=== PATIENT | male | born 1960 ===

== ENCOUNTER 2017-01-19 09:20 | Emergency (ER) | payer MEDICAID ==
[2017-01-19 09:35] VITALS: TEMP 97.9; BMI 35.7
[2017-01-19] MEDS ORDERED: Sodium Chloride 0.9% 1,000 ML IV STA (09:49)
--- NOTE | 2017-01-19 09:52 | ED PDOC ---
Hyperglycemia/Hypoglycemia Time Seen by Provider: 01/19/17 09:37 Chief Complaint (Nursing): High Blood Sugar Chief Complaint (Provider): elevated blood sugar History Per: Patient History/Exam Limitations: no limitations Onset/Duration Of Symptoms: Days Current Symptoms Are (Timing): Still Present Severity: Moderate Current Diabetic Medications: Oral Medication Associated Infectious Symptoms: denies: Dysuria, Urinary Urgency, Urinary Frequency, Nausea, Vomiting, Diarrhea : The patient does not have any of the infectious symptoms listed except for those marked. Additional History Per: Patient Additional Complaint(s): The pt is a 57yo male with PMHx of HTN, Diabetes, hypercholesterolemia, presents to the ED for evaluation of elevated blood sugar levels for the past week. Pt. reports the lowest level was 186 and the highest was 299. Pt states he was informed by PCP to visit the ED if his levels went past 200. Pt. denies any SOB, chest pain, dizziness, nausea, vomiting, dysuria, frequency, abdominal pain. Pt. reports he "feels fine" and denies any symptoms. Pt. currently taking Alogliptin for diabetes. PMD: Dr. Noel Rodrigues Past Medical History Reviewed: Historical Data, Nursing Documentation, Vital Signs Vital Signs: Last Vital Signs Temp 97.9 F 01/19/17 09:24 Pulse 90 01/19/17 09:24 Resp 18 01/19/17 09:24 BP 114/72 01/19/17 09:24 Pulse Ox 98 01/19/17 09:24 - Medical History PMH: Diabetes, HIV, HTN, Hypercholesterolemia Denies: Chronic Kidney Disease - Family History Family History: States: Unknown Family Hx - Social History Current smoker - smoking cessation education provided: No Alcohol: None Drugs: Denies - Immunization History Hx Tetanus Toxoid Vaccination: No Hx Influenza Vaccination: Yes Hx Pneumococcal Vaccination: No - Home Medications Home Medications: Ambulatory Orders Medication Instructions Recorded Alogliptin Benzoate [Alogliptin] 25 mg PO DAILY 12/27/16 Atorvastatin Calcium 10 mg PO DAILY 12/27/16 Carvedilol [Coreg] 25 mg PO DAILY 12/27/16 Chlorthalidone [Hygroton] 25 mg PO DAILY 12/27/16 Darunavir Ethanolate [Prezista] 600 mg PO BID 12/27/16 Dolutegravir Sodium [Tivicay] 50 mg PO DAILY 12/27/16 Famotidine 20 mg PO BID 12/27/16 Lamivudine [Epivir] 150 mg PO DAILY 12/27/16 Lisinopril [Zestril] 40 mg PO DAILY 12/27/16 Loratadine [Claritin] 10 mg PO DAILY 12/27/16 Lubiprostone [Amitiza] 24 mcg PO DAILY 12/27/16 NIFEdipine ER [Nifedipine ER] 60 mg PO DAILY 12/27/16 Ritonavir [Norvir] 200 mg PO DAILY 12/27/16 Sulfamethoxazole/Trimethoprim 1 tab PO DAILY 12/27/16 [Bactrim DS 800 mg-160 mg] Tamsulosin [Flomax] 0.4 mg PO DAILY 12/27/16 Vitamin E 1,000 unit PO DAILY 12/27/16 - Allergies Allergies/Adverse Reactions: Allergies Allergy/AdvReac Type Severity Reaction Status Date / Time No Known Allergies Allergy Verified 01/02/17 15:31 Review of Systems ROS Statement: Except As Marked, All Systems Reviewed And Found Negative Constitutional: Positive for: Other (elevated blood sugar levels) Cardiovascular: Negative for: Chest Pain Respiratory: Negative for: Shortness of Breath Gastrointestinal: Negative for: Nausea, Vomiting, Abdominal Pain Genitourinary Male: Negative for: Dysuria, Frequency Neurological: Negative for: Dizziness Physical Exam - Reviewed Nursing Documentation Reviewed: Yes Vital Signs Reviewed: Yes - Physical Exam Appears: Positive for: Well, Non-toxic, No Acute Distress Head Exam: Positive for: ATRAUMATIC, NORMAL INSPECTION, NORMOCEPHALIC Skin: Positive for: Normal Color Eye Exam: Positive for: Normal appearance ENT: Positive for: Normal ENT Inspection Neck: Positive for: Normal, Supple Cardiovascular/Chest: Positive for: Regular Rate, Rhythm Respiratory: Positive for: Normal Breath Sounds. Negative for: Respiratory Distress Gastrointestinal/Abdominal: Positive for: Normal Exam, Soft Back: Positive for: Normal Inspection Extremity: Positive for: Normal ROM. Negative for: Tenderness, Pedal Edema, Deformity, Swelling Neurologic/Psych: Positive for: Alert, Oriented - Laboratory Results Result Diagrams: 01/19/17 10:00 01/19/17 10:00 Interpretation Of Abn Labs: bun 29; glucose 258 - ECG ECG: Positive for: Interpreted By Me, Viewed By Me ECG Rhythm: Positive for: Normal QRS, Normal ST Segment, Sinus Rhythm O2 Sat by Pulse Oximetry: 98 (RA) Pulse Ox Interpretation: Normal - Progress ED Course And Treament: 1145: Stable. AAOx3. No symptoms. Dehydration, got fluids to correct. No pain. Blood sugar down. Medical Decision Making Medical Decision Making: Time: 944 Impression: Elevated blood sugar levels Plan: -- EKg -- CMP -- CBC -- Troponin -- IV fluids --Reassess Scribe Attestation: Documented by Elizabeth Guzman acting as a scribe for Jasen Brown MD. Provider Attestation: All medical record entries made by the Scribe were at my direction and personally dictated by me. I have reviewed the chart and agree that the record accurately reflects my personal performance of the history, physical exam, medical decision making, and the department course for this patient. I have also personally directed, reviewed, and agree with the discharge instructions and disposition. Disposition - Clinical Impression Clinical Impression: Hyperglycemia, Dehydration - Patient ED Disposition Is Patient to be Admitted: No Counseled Patient/Family Regarding: Studies Performed, Diagnosis, Need For Followup - Disposition Referrals: [facility] [Outside] - 01/21/17 Disposition: Routine/Home Disposition Time: 11:47 Condition: STABLE Additional Instructions: Return if not better in 3 days. Instructions: Diabetic Hyperglycemia (ED), Dehydration (ED) Forms: [employer] Visits Discharge (Panamanian)
[2017-01-19 10:14] LABS: BASO # 0.1 K/uL (0.0-0.2); BASO % 1.1 % (0.0-2.0); EOS # 0.3 K/uL (0.0-0.7); EOS % 4.6 % (0.0-4.0); HEMATOCRIT 35.5 % (35.0-51.0); LYMPH # 2.4 K/uL (1.0-4.3); LYMPH % 42.4 % (20.0-40.0); MEAN CELL VOLUME 96.4 fl (80.0-94.0); MEAN CORPUSCULAR HEMOGLOBIN 33.5 pg (27.0-31.0); MEAN CORPUSCULAR HGB CONC 34.8 g/dL (33.0-37.0); MEAN PLATELET VOLUME 7.1 fl (7.2-11.7); MONO # 0.5 K/uL (0.0-0.8); MONO % 9.3 % (0.0-10.0); NEUT # 2.4 K/uL (1.8-7.0); NEUT % 42.6 % (50.0-75.0); NRBC % 0.2 % (0.0-0.0); RED CELL DISTRIBUTION WIDTH 14.8 % (11.5-14.5); WHITE BLOOD COUNT 5.6 K/uL (4.8-10.8)
[2017-01-19 10:23] LABS: ALB/GLOB RATIO 1.1 (1.0-2.1); ALKALINE PHOSPHATASE 72 U/L (38-126); ALT/SGPT 42 U/L (21-72); AST/SGOT 31 U/L (17-59); BILIRUBIN,TOTAL 0.5 mg/dl (0.2-1.3); BLOOD UREA NITROGEN 29 mg/dl (9-20); CALCIUM 9.5 mg/dL (8.4-10.2); CARBON DIOXIDE 22 mmol/L (22-30); CHLORIDE 101 mmol/L (98-107); GFR AFRICAN-AMERICAN > 60; GLUCOSE,RANDOM 258 mg/dL (75-110); POTASSIUM 4.5 MMOL/L (3.6-5.0); SODIUM 136 mmol/l (132-148); TOTAL PROTEIN 8.7 G/DL (6.3-8.2)
[2017-01-19 11:56] VITALS: BP 132/65; PULSE 88; RESP 14; O2SAT 100
--- NOTE | 2017-01-20 06:17 | CARD ---
APPROVED REPORT EKG Measurement Heart [id number] <Conclusion> Normal sinus rhythm Nonspecific T wave abnormality Abnormal ECG
== END 2017-01-19 11:56 | disposition home or self-care (01) ==
LOC: H.ER 09:20
DX: E11.65 Type 2 diabetes mellitus with hyperglycemia (principal); E86.0 Dehydration; E78.00 Pure hypercholesterolemia, unspecified; I10 Essential (primary) hypertension

== ENCOUNTER 2017-01-27 11:28 | Emergency (ER) | payer MEDICAID ==
[2017-01-27 11:42] VITALS: BP 125/90; PULSE 98; RESP 19; TEMP 98.1; O2SAT 100
--- NOTE | 2017-01-27 11:44 | ED PDOC ---
Upper Extremity Pain/Injury Time Seen by Provider: 01/27/17 11:42 Chief Complaint (Nursing): Trauma Chief Complaint (Provider): hand injury History Per: Patient (57 y/o male h/o DM/HTN/HIV here with hand injury that occurred 1 hour prior to ED arrival. Patient struck left hand against back of door accidentally. Notes deformity and inability to flex and extend digit. Is right hand domninant.) Past Medical History Reviewed: Historical Data, Nursing Documentation, Vital Signs - Medical History PMH: Bronchitis, CAD, Diabetes, HIV, HTN, Hypercholesterolemia, Hyperlipidemia, TIA Denies: Chronic Kidney Disease - Surgical History Surgical History: CABG (x 1 stent), Coronary Stent - Family History Family History: States: Unknown Family Hx - Immunization History Hx Tetanus Toxoid Vaccination: No Hx Influenza Vaccination: Yes Hx Pneumococcal Vaccination: No - Home Medications Home Medications: Ambulatory Orders Medication Instructions Recorded Alogliptin Benzoate [Alogliptin] 25 mg PO DAILY 12/27/16 Atorvastatin Calcium 10 mg PO DAILY 12/27/16 Carvedilol [Coreg] 25 mg PO DAILY 12/27/16 Chlorthalidone [Hygroton] 25 mg PO DAILY 12/27/16 Darunavir Ethanolate [Prezista] 600 mg PO BID 12/27/16 Dolutegravir Sodium [Tivicay] 50 mg PO DAILY 12/27/16 Famotidine 20 mg PO BID 12/27/16 Lamivudine [Epivir] 150 mg PO DAILY 12/27/16 Lisinopril [Zestril] 40 mg PO DAILY 12/27/16 Loratadine [Claritin] 10 mg PO DAILY 12/27/16 Lubiprostone [Amitiza] 24 mcg PO DAILY 12/27/16 NIFEdipine ER [Nifedipine ER] 60 mg PO DAILY 12/27/16 Ritonavir [Norvir] 200 mg PO DAILY 12/27/16 Sulfamethoxazole/Trimethoprim 1 tab PO DAILY 12/27/16 [Bactrim DS 800 mg-160 mg] Tamsulosin [Flomax] 0.4 mg PO DAILY 12/27/16 Vitamin E 1,000 unit PO DAILY 12/27/16 Ibuprofen [Motrin] 600 mg PO Q8 PRN #15 tab 01/27/17 - Allergies Allergies/Adverse Reactions: Allergies Allergy/AdvReac Type Severity Reaction Status Date / Time No Known Allergies Allergy Verified 01/02/17 15:31 Review of Systems ROS Statement: Except As Marked, All Systems Reviewed And Found Negative Musculoskeletal: Positive for: Hand Pain Physical Exam - Reviewed Nursing Documentation Reviewed: Yes Vital Signs Reviewed: Yes - Physical Exam Appears: Positive for: Well, Non-toxic, No Acute Distress Head Exam: Positive for: ATRAUMATIC, NORMAL INSPECTION, NORMOCEPHALIC Skin: Positive for: Normal Color, Warm, DRY Eye Exam: Positive for: EOMI, Normal appearance, PERRL ENT: Positive for: Normal ENT Inspection Neck: Positive for: Normal, Painless ROM Cardiovascular/Chest: Positive for: Regular Rate, Rhythm Respiratory: Positive for: CNT, Normal Breath Sounds Gastrointestinal/Abdominal: Positive for: Normal Exam, Bowel Sounds, Soft Back: Positive for: Normal Inspection Extremity: Positive for: Normal ROM, Tenderness (fifth digit left hand with hyper flexion at DIP and extension and middle interphalangeal joing. Able to flex and PIP.) Neurologic/Psych: Positive for: Alert, Oriented - Progress ED Course And Treament: XRY OF HAND: ? FRACTURE PROXIMAL PHALANX. PLACED IN FINGER SPLINT. ADVICED TO F/U WITH HAND FOR OBVIOUS TENDON INJURY. Disposition - Clinical Impression Clinical Impression: Finger injury - Patient ED Disposition Is Patient to be Admitted: No - Disposition Referrals: Bernardo Alexandre MD [Medical Doctor] - Disposition Time: 12:40 Condition: FAIR Prescriptions: Ibuprofen [Motrin] 600 mg PO Q8 PRN #15 tab PRN Reason: Pain, Severe (8-10) Instructions: Finger Sprain (ED), Finger Fracture (ED) Print Language: VIET[place]ESE
--- NOTE | 2017-01-27 16:14 | RAD ---
PROCEDURE: Left Hand Radiographs. HISTORY: hand injury/deformity COMPARISON: None. FINDINGS: BONES: Normal. No fracture. JOINTS: Normal. No osteoarthritic changes. SOFT TISSUES: Normal. OTHER FINDINGS: None. IMPRESSION: Normal left hand radiographs.
== END 2017-01-27 12:56 | disposition home or self-care (01) ==
LOC: H.ER 11:28
DX: S60.947A Unspecified superficial injury of left little finger, initial encounter (principal); W22.8XXA Striking against or struck by other objects, initial encounter; Y92.89 Other specified places as the place of occurrence of the external cause; E11.9 Type 2 diabetes mellitus without complications; E78.00 Pure hypercholesterolemia, unspecified; I10 Essential (primary) hypertension; I25.10 Atherosclerotic heart disease of native coronary artery without angina pectoris; Z86.73 Personal history of transient ischemic attack (TIA), and cerebral infarction without residual deficits; Z95.1 Presence of aortocoronary bypass graft; Z95.5 Presence of coronary angioplasty implant and graft; B20 Human immunodeficiency virus [HIV] disease

== ENCOUNTER 2017-02-01 13:18 | Emergency (ER) | payer MEDICAID ==
[2017-02-01 13:58] VITALS: BP 134/92; PULSE 90; RESP 16; TEMP 98; O2SAT 99
--- NOTE | 2017-02-01 14:29 | ED PDOC ---
Hyperglycemia/Hypoglycemia Time Seen by Provider: 02/01/17 14:00 Chief Complaint (Nursing): High Blood Sugar Chief Complaint (Provider): High Blood Sugar History Per: Patient History/Exam Limitations: no limitations Onset/Duration Of Symptoms: Hrs Current Symptoms Are (Timing): Still Present : The patient does not have any of the infectious symptoms listed except for those marked. Additional Complaint(s): Palmer Benitez is a 57 year old male with a history of diabetes that presents to the ED with a chief complaint of elevated blood sugar. Patient states that when he checked his blood sugar this morning, it was 250. He then took his pill, and checked his blood sugar again around 11 AM, and it was at 270. He states that his blood sugar is usually between 150-160 during the morning. He denies any fever, SOB, urinary frequency, urgency, polydipsia, or numbness/tingling. Patient further states that last week he was diagnosed with a left pinky fracture, and was advised to follow up with an orthopedist. He was then told he needs a copy of his x-ray before going to the orthopedist's office. Of Note: Patient is not insulin dependent, only takes pills to control his DM. Past Medical History Reviewed: Historical Data, Nursing Documentation, Vital Signs Vital Signs: Last Vital Signs Temp 98.0 F 02/01/17 13:56 Pulse 90 02/01/17 13:56 Resp 16 02/01/17 13:56 BP 134/92 H 02/01/17 13:56 Pulse Ox 99 02/01/17 13:56 - Medical History PMH: Bronchitis, CAD, Diabetes, HIV, HTN, Hypercholesterolemia, Hyperlipidemia, TIA Denies: Chronic Kidney Disease - Surgical History Surgical History: CABG (x 1 stent), Coronary Stent - Family History Family History: States: Unknown Family Hx - Immunization History Hx Tetanus Toxoid Vaccination: No Hx Influenza Vaccination: Yes Hx Pneumococcal Vaccination: No - Home Medications Home Medications: Ambulatory Orders Medication Instructions Recorded Alogliptin Benzoate [Alogliptin] 25 mg PO DAILY 12/27/16 Atorvastatin Calcium 10 mg PO DAILY 12/27/16 Carvedilol [Coreg] 25 mg PO DAILY 12/27/16 Chlorthalidone [Hygroton] 25 mg PO DAILY 12/27/16 Darunavir Ethanolate [Prezista] 600 mg PO BID 12/27/16 Dolutegravir Sodium [Tivicay] 50 mg PO DAILY 12/27/16 Famotidine 20 mg PO BID 12/27/16 Lamivudine [Epivir] 150 mg PO DAILY 12/27/16 Lisinopril [Zestril] 40 mg PO DAILY 12/27/16 Loratadine [Claritin] 10 mg PO DAILY 12/27/16 Lubiprostone [Amitiza] 24 mcg PO DAILY 12/27/16 NIFEdipine ER [Nifedipine ER] 60 mg PO DAILY 12/27/16 Ritonavir [Norvir] 200 mg PO DAILY 12/27/16 Sulfamethoxazole/Trimethoprim 1 tab PO DAILY 12/27/16 [Bactrim DS 800 mg-160 mg] Tamsulosin [Flomax] 0.4 mg PO DAILY 12/27/16 Vitamin E 1,000 unit PO DAILY 12/27/16 Ibuprofen [Motrin] 600 mg PO Q8 PRN #15 tab 01/27/17 - Allergies Allergies/Adverse Reactions: Allergies Allergy/AdvReac Type Severity Reaction Status Date / Time No Known Allergies Allergy Verified 01/02/17 15:31 Review of Systems Constitutional: Positive for: Other (elevated blood sugar). Negative for: Fever ENT: Negative for: Other (denies polydipsia) Respiratory: Negative for: Shortness of Breath Genitourinary Male: Negative for: Frequency, Other (no urinary urgency) Musculoskeletal: Positive for: Hand Pain (left pinky fracture) Neurological: Negative for: Numbness (denies numbness or tingling) Physical Exam - Reviewed Nursing Documentation Reviewed: Yes Vital Signs Reviewed: Yes - Physical Exam Appears: Positive for: Non-toxic, No Acute Distress Head Exam: Positive for: ATRAUMATIC, NORMOCEPHALIC Skin: Positive for: Normal Color, Warm Eye Exam: Positive for: Normal appearance, EOMI, PERRL ENT: Positive for: Normal ENT Inspection Cardiovascular/Chest: Positive for: Regular Rate, Rhythm. Negative for: Murmur Respiratory: Positive for: Normal Breath Sounds. Negative for: Wheezing Gastrointestinal/Abdominal: Positive for: Soft. Negative for: Tenderness Neurologic/Psych: Positive for: Alert, Oriented - Laboratory Results Result Diagrams: 02/01/17 14:15 02/01/17 14:15 - ECG O2 Sat by Pulse Oximetry: 99 (RA) Pulse Ox Interpretation: Normal - Progress Re-evaluation Time: 16:43 (Repeat FSBS: 204. Pt. without any complaints. Instructed to go to medical records for copy of x-rays and to f/u with orthopedist as scheduled. ) Condition: Re-examined, Improved Medical Decision Making Medical Decision Making: Impression: Elevated Glucose Plan: * Finger Stick * Reevaluation 14:35 Finger Stick is 418. Labs, IV hydration, and insulin ordered. Scribe Attestation: Documented by Chrystal Saucedo, acting as a scribe for Buddy Evans PA-C. Provider Scribe Attestation: All medical record entries made by the Scribe were at my direction and personally dictated by me. I have reviewed the chart and agree that the record accurately reflects my personal performance of the history, physical exam, medical decision making, and the department course for this patient. I have also personally directed, reviewed, and agree with the discharge instructions and disposition. Disposition - Clinical Impression Clinical Impression: Hyperglycemia - Patient ED Disposition Is Patient to be Admitted: No - Disposition Referrals: Noel Rodrigues MD [Family Provider] - Disposition: Routine/Home Disposition Time: 16:44 Condition: STABLE Instructions: Diabetic Hyperglycemia (ED) Print Language: PASHTO
[2017-02-01] MEDS ORDERED: Insulin Regular 100 units/ml IVP STA (14:35)
[2017-02-01] MEDS ORDERED: Sodium Chloride 0.9% 1,000 ML IV STA ×2 (14:35→15:29)
[2017-02-01] MEDS ORDERED: Insulin Regular 100 units/ml ONE (14:52)
[2017-02-01 15:06] LABS: BASO # 0.1 K/uL (0.0-0.2); BASO % 1.4 % (0.0-2.0); EOS # 0.2 K/uL (0.0-0.7); EOS % 4.3 % (0.0-4.0); HEMATOCRIT 34.9 % (35.0-51.0); LYMPH # 1.9 K/uL (1.0-4.3); LYMPH % 40.8 % (20.0-40.0); MEAN CELL VOLUME 96.1 fl (80.0-94.0); MEAN CORPUSCULAR HEMOGLOBIN 32.6 pg (27.0-31.0); MEAN PLATELET VOLUME 7.6 fl (7.2-11.7); MONO # 0.5 K/uL (0.0-0.8); MONO % 9.9 % (0.0-10.0); NEUT % 43.6 % (50.0-75.0); NRBC % 0.2 % (0.0-0.0); RED CELL DISTRIBUTION WIDTH 14.4 % (11.5-14.5); WHITE BLOOD COUNT 4.6 K/uL (4.8-10.8)
[2017-02-01 15:10] LABS: RBC URINE 2 /hpf (0-3); URINE BILIRUBIN NEGATIVE (NEGATIVE); URINE BLOOD NEGATIVE (NEGATIVE); URINE COLOR YELLOW (YELLOW); URINE GLUCOSE (UA) >=500 mg/dL (Normal); URINE KETONE NEGATIVE (NEGATIVE); URINE LEUKOCYTE ESTERASE NEG Leu/uL (Negative); URINE PROTEIN NEGATIVE (NEGATIVE); URINE UROBILINOGEN 0.2-1.0 mg/dL (0.2-1.0); WBC URINE < 1 /hpf (0-5)
[2017-02-01 15:26] LABS: ALB/GLOB RATIO 1.3 (1.0-2.1); BILIRUBIN,TOTAL 0.4 mg/dl (0.2-1.3); CALCIUM 9.3 mg/dL (8.4-10.2); POTASSIUM 4.1 MMOL/L (3.6-5.0); TOTAL PROTEIN 8.3 G/DL (6.3-8.2)
[2017-02-01] MEDS ORDERED: Insulin Regular 100 units/ml SC STA (15:29)
== END 2017-02-01 16:49 | disposition home or self-care (01) ==
LOC: H.ER 13:18
DX: E11.65 Type 2 diabetes mellitus with hyperglycemia (principal); Z79.4 Long term (current) use of insulin

== ENCOUNTER 2017-03-18 13:04 | Inpatient (IN) | payer MEDICAID ==
[2017-03-18] MEDS ORDERED: Sodium Chloride 0.9% 1,000 ML IV STA ×2 (14:05→15:04)
[2017-03-18 14:35] LABS: BASO % 0.7 % (0.0-2.0); EOS # 0.1 K/uL (0.0-0.7); EOS % 2.1 % (0.0-4.0); HEMOGLOBIN 12.2 g/dL (12.0-18.0); LYMPH # 1.3 K/uL (1.0-4.3); LYMPH % 28.2 % (20.0-40.0); MEAN CELL VOLUME 95.3 fl (80.0-94.0); MEAN CORPUSCULAR HEMOGLOBIN 32.8 pg (27.0-31.0); MEAN CORPUSCULAR HGB CONC 34.4 g/dL (33.0-37.0); MEAN PLATELET VOLUME 8.6 fl (7.2-11.7); MONO # 0.4 K/uL (0.0-0.8); MONO % 7.8 % (0.0-10.0); NEUT # 2.9 K/uL (1.8-7.0); NEUT % 61.2 % (50.0-75.0); NRBC % 0.1 % (0.0-0.0); RBC 3.72 Mil/uL (4.40-5.90); WHITE BLOOD COUNT 4.7 K/uL (4.8-10.8)
[2017-03-18 14:43] LABS: CALCIUM 9.2 mg/dL (8.4-10.2)
[2017-03-18] MEDS ORDERED: Insulin Regular 100 units/ml IV STA (15:02)
[2017-03-18] MEDS ORDERED: Glucagon Recombinant 1 mg Inj IM PRN (15:04)
[2017-03-18] MEDS ORDERED: Dextrose 50% SYRINGE Inj (50 ml) IV PRN (15:04)
--- NOTE | 2017-03-18 15:42 | ED PDOC ---
HPI: Male Pain Time Seen by Provider: 03/18/17 13:33 Chief Complaint (Nursing): Male Genitourinary Chief Complaint (Provider): genital rash History Per: Patient History/Exam Limitations: no limitations Onset/Duration Of Symptoms: Days Current Symptoms Are (Timing): Still Present Associated Symptoms: denies: Urinary Symptoms Additional History Per: Patient Additional Complaint(s): The pt is a 57yo male, PMHx of HIV, DM, presents to the ED for evaluation of a genital rash present for the past couple days. Pt reports associated itching but denies dysuria. He also reports having high blood sugar levels but reports it as "nothing serious." Pt reports he has recently filled his medication but has been noncompliant. He denies any other medical complaints. Of note, pt's prior charts were consulted and last known absolute CD4 levels was 34 in August 2016. Pt states he follows up with Dr. Rodrigues and states he is "stable ". Past Medical History Reviewed: Historical Data, Nursing Documentation, Vital Signs Vital Signs: Last Vital Signs Temp 98 F 03/18/17 13:06 Pulse 81 03/18/17 13:06 Resp 20 03/18/17 13:06 BP 100/60 03/18/17 13:06 Pulse Ox 99 03/18/17 13:06 - Medical History PMH: Bronchitis, CAD, Diabetes, HIV, HTN, Hypercholesterolemia, Hyperlipidemia, TIA Denies: Chronic Kidney Disease - Surgical History Surgical History: CABG (x 1 stent), Coronary Stent - Family History Family History: States: Unknown Family Hx - Immunization History Hx Tetanus Toxoid Vaccination: No Hx Influenza Vaccination: Yes Hx Pneumococcal Vaccination: No - Home Medications Home Medications: Ambulatory Orders Medication Instructions Recorded Alogliptin Benzoate [Alogliptin] 25 mg PO DAILY 12/27/16 Atorvastatin Calcium 10 mg PO DAILY 12/27/16 Chlorthalidone [Hygroton] 25 mg PO DAILY 12/27/16 Darunavir Ethanolate [Prezista] 600 mg PO BID 12/27/16 Dolutegravir Sodium [Tivicay] 50 mg PO DAILY 12/27/16 Famotidine 20 mg PO BID 12/27/16 Lamivudine [Epivir] 150 mg PO DAILY 12/27/16 Lisinopril [Zestril] 40 mg PO DAILY 12/27/16 Loratadine [Claritin] 10 mg PO DAILY 12/27/16 NIFEdipine ER [Nifedipine ER] 60 mg PO DAILY 12/27/16 Ritonavir [Norvir] 100 mg PO BID 12/27/16 Sulfamethoxazole/Trimethoprim 1 tab PO DAILY 12/27/16 [Bactrim DS 800 mg-160 mg] Tamsulosin [Flomax] 0.4 mg PO DAILY 12/27/16 Vitamin E 1,000 unit PO DAILY 12/27/16 Aspirin [Ecotrin] 81 mg PO DAILY 03/18/17 Cholecalciferol [Vitamin D 1000 IU] 1,000 unit PO DAILY 03/18/17 Clopidogrel [Plavix] 75 mg PO DAILY 03/18/17 Ibuprofen [Motrin] 600 mg PO Q8 PRN 03/18/17 Oxybutynin XL [Ditropan XL] 5 mg PO HS 03/18/17 - Allergies Allergies/Adverse Reactions: Allergies Allergy/AdvReac Type Severity Reaction Status Date / Time No Known Allergies Allergy Verified 01/02/17 15:31 Review of Systems ROS Statement: Except As Marked, All Systems Reviewed And Found Negative Constitutional: Positive for: Other (high blood sugar) Genitourinary Male: Negative for: Dysuria Skin: Positive for: Rash (genital rash) Physical Exam - Reviewed Nursing Documentation Reviewed: Yes Vital Signs Reviewed: Yes - Physical Exam Appears: Positive for: Well, Non-toxic, No Acute Distress Head Exam: Positive for: ATRAUMATIC, NORMAL INSPECTION, NORMOCEPHALIC Skin: Positive for: Normal Color, Warm, DRY Eye Exam: Positive for: Normal appearance Neck: Positive for: Normal, Painless ROM Cardiovascular/Chest: Positive for: Regular Rate, Rhythm Respiratory: Positive for: Normal Breath Sounds. Negative for: Respiratory Distress Gastrointestinal/Abdominal: Positive for: Normal Exam, Soft Male Genital Exam: Positive for: normal genitalia, other (mild erythema and white discharge noted from foreskin) Back: Positive for: Normal Inspection Extremity: Positive for: Normal ROM Neurologic/Psych: Positive for: Alert, Oriented - Laboratory Results Result Diagrams: 03/18/17 14:15 03/18/17 14:15 - ECG ECG: Positive for: Interpreted By Me, Viewed By Me ECG Rhythm: Positive for: Normal QRS, Normal ST Segment, Sinus Rhythm, Nonspecific Changes Rate: 70 O2 Sat by Pulse Oximetry: 99 - Physician Consult Information Time Consulting Physican Contacted: 15:00 Physician Contacted: Bassam Krause - Critical Care Total Time (In Min): 30 Documented Critical Care: Time excludes all time spent performint seperately billable procedures Medical Decision Making Medical Decision Making: Time: 1350 Impression: 1. Genital rash; differential: herpes 2. Hyperglycemia, uncontrolled diabetes r/o DKA Plan: -- Genital exam with civil geotechnical engineer Scott as farm machinery set up mechanic -- Insulin prn -- IV Fluids Reassess Time: 1530 Labs indicate hyperglycemia without HAG and without ketones. Impression Hyperglycemia hyperosmolar state. Insulin 10 units bolus IV Insulin drip 10units/ml/hr Secondary dx: Balanitis, most likely fungal Scribe Attestation: Documented by Elizabeth Guzman acting as a scribe for Joaquín Main MD. Provider Attestation: All medical record entries made by the Scribe were at my direction and personally dictated by me. I have reviewed the chart and agree that the record accurately reflects my personal performance of the history, physical exam, medical decision making, and the department course for this patient. I have also personally directed, reviewed, and agree with the discharge instructions and disposition. Disposition - Clinical Impression Clinical Impression: Hyperosmolar non-ketotic state in patient with type 2 diabetes mellitus, ARF ( acute renal failure) - Patient ED Disposition Is Patient to be Admitted: Yes Discussed With : Siddhartha Marquez Doctor Will See Patient In The: ED Counseled Patient/Family Regarding: Studies Performed, Diagnosis, Need For Followup - Disposition Disposition Time: 16:00 Condition: CRITICAL - Pt Status Changed To: Hospital Disposition Of: Inpatient - Admit Certification Admit to Inpatient:: After my assessment, the patient will require hospitalization for at least two midnights. This is because of the severity of symptoms shown, intensity of services needed, and/or the medical risk in this patient being treated as an outpatient. - POA Present On Arrival: Poor Glycemic Control
[2017-03-18] MEDS ORDERED: Insulin Regular 100 units/ml ONE (15:59)
[2017-03-18 16:00] LABS: ABG ALLEN TEST YES; ARTERIAL BLOOD GAS HCO3 20.6 mmol/L (21-28); ARTERIAL BLOOD GAS O2 CAPACITY 16.1 mL/dL (16-24); ARTERIAL BLOOD GAS O2 CONTENT 15.7 ML/dL (15-23); ARTERIAL BLOOD GAS O2 SAT 97.7 % (95-98); ARTERIAL BLOOD GAS PCO2 38 mm/Hg (35-45); ARTERIAL BLOOD GAS PH 7.33 (7.35-7.45); ARTERIAL BLOOD GAS PO2 74 mm/Hg (80-100); ARTERIAL BLOOD GAS TCO2 21.2 mmol/L (22-28)
--- NOTE | 2017-03-18 17:27 | CP.PCM.HP ---
History of Present Illness - History of Present Illness History of Present Illness: 57 yr old M presented to ED with complaint of elevated blood sugar and genital rash. Patient denies chest pain, nausea, vomiting, cough, runny nose, weakness or dizziness. Patient reports his blood sugar has been 300-350mg/dL daily for about a week, yesterday it was 450mg/dL and this AM his fasting blood sugar was 500mg/dL, along with polydipsia and polyuria x 1 week. His genital rash appeared 1 week ago, is pruritic, nontender to touch. Patients reports he saw his PMD Dr. Hinojosa in December 2016 [address]paper inspector [address]. Salas in Sep 2016. Patient reports that lately he has been eating more chocolate and ate a bagel this AM for breakfast. PMD: Dr. Hinojosa (last visit 01/11/2017) Specialists: Dr. Salas-cardiology (last visit 6 months ago) PMHx: HIV, DM Type II, HTN, HLD, TIA, CAD/[place] x 1 stent 2015, CKD stage 3B SurgHx: CABG x 1 stent 2015, Right cataract extraction 2012, Excision of back lipoma 2006, colonoscopy/endoscopy 2015 FMHx: father alive 82yrs old, mother alive 79 yrs old, 4 brothers healthy, 2 sisters healthy SocHx: former smoker-quit 3 yrs ago - 50pack year history, denies drugs or Etoh , lives alone in a basement, can walk long distances without difficulty Meds: Carvedilol 25mg PO QD, Lisinopril 40mg PO QD, Chlorthalidone 25mg PO QD, Nifedipine ER 60mg PO QD, ASA 81 mg PO QD, Tamsulosin HCl 0.4mg PO QD, Plavix 75mg PO QD, Vitamin E 1000 unit PO QD, Lipitor 10mg PO QD, Prezista 600mg PO QD , Norvir 100mg PO BID, Epivir 150mg PO QD, Tivicay 50mg PO QD, Bactrim DS 800- 160 PO QD, Zithromax 600mg PO QWeek, Alogliptin Benzoate 25mg PO QD, Famotidine 20mg PO QHS, Loratadine 10mg PO QD, Amitiza 24mcg PO BID with food ED Course -ABG: pCO2 38/ pO2 74/ HCO3 20.6, pH 7.33/ -Labs: blood sugar 984mg/dL; CBC :WBC 4.7, rest wnl; CMP: Na 121/K 5.6/ Cl 89/ HCO3 18/ BUN 51/ Cr 2.0/ Est GFR 35 -Urinalysis: Glu 500, Vren neg, ketone trace, blood neg, protein neg, nitrite neg , leukocyte neg -Meds: IVF: 2L NS bolus, Regular Insulin 10 units IV once -EKG pending, CXR pending Present on Admission - Present on Admission Any Indicators Present on Admission: Yes History of DVT/PE: No History of Uncontrolled Diabetes: Yes Urinary Catheter: No Decubitus Ulcer Present: No Review of Systems - Review of Systems All systems: reviewed and no additional remarkable complaints except (except for what is mentioned in the HPI) Past Patient History - Infectious Disease Hx of Infectious Diseases: None - Past Medical History & Family History Past Medical History?: Yes - Past Social History Smoking Status: Never Smoked - CARDIAC Hx Hypercholesterolemia: Yes Hx Hypertension: Yes - PULMONARY Hx Bronchitis: Yes - NEUROLOGICAL Hx Transient Ischemic Attacks (TIA): Yes - HEENT Hx HEENT Problems: No - RENAL Hx Chronic Kidney Disease: No - ENDOCRINE/METABOLIC Hx Endocrine Disorders: Yes Hx Diabetes Mellitus Type 2: Yes - HEMATOLOGICAL/ONCOLOGICAL Hx Human Immunodeficiency Virus (HIV): Yes - INTEGUMENTARY Hx Dermatological Problems: No - MUSCULOSKELETAL/RHEUMATOLOGICAL Hx Musculoskeletal Disorders: No Hx Falls: No - GASTROINTESTINAL Hx Gastrointestinal Disorders: No - GENITOURINARY/GYNECOLOGICAL Hx Genitourinary Disorders: Yes Hx Prostate Problems: Yes - PSYCHIATRIC Hx Psychophysiologic Disorder: No Hx Substance Use: No - SURGICAL HISTORY Hx Coronary Artery Bypass Graft: Yes (x 1 stent) Hx Coronary Stent: Yes - ANESTHESIA Hx Anesthesia: Yes Hx Anesthesia Reactions: No Hx Malignant Hyperthermia: No Meds Allergies/Adverse Reactions: Allergies Allergy/AdvReac Type Severity Reaction Status Date / Time No Known Allergies Allergy Verified 01/02/17 15:31 Physical Exam - Constitutional Appears: Non-toxic, No Acute Distress - Head Exam Head Exam: ATRAUMATIC, NORMOCEPHALIC - Eye Exam Eye Exam: EOMI, PERRL (bilateral conjunctival injection) - ENT Exam ENT Exam: Mucous Membranes Moist - Neck Exam Neck exam: Positive for: Full Rom. Negative for: Lymphadenopathy - Respiratory Exam Respiratory Exam: Clear to Auscultation Bilateral, NORMAL BREATHING PATTERN - Cardiovascular Exam Cardiovascular Exam: REGULAR RHYTHM, +S1, +S2 - GI/Abdominal Exam GI & Abdominal Exam: Normal Bowel Sounds, Soft (obese). absent: Distended, Tenderness - Exam Exam: absent: Circumcision (mild penile erythematous rash, no ulcerations, no clear margins, white cream over rash), Scrotal Swelling - Extremities Exam Extremities exam: Positive for: full ROM. Negative for: calf tenderness, pedal edema, tenderness (right hallux amputation) - Back Exam Back exam: absent: CVA tenderness (L), CVA tenderness (R) - Neurological Exam Neurological exam: Alert, CN II-XII Intact, Oriented x3 - Psychiatric Exam Psychiatric exam: Normal Affect, Normal Mood - Skin Skin Exam: Dry, Intact, Warm Results - Vital Signs Recent Vital Signs: Last Vital Signs Temp 98 F 03/18/17 13:06 Pulse 81 03/18/17 13:06 Resp 20 03/18/17 13:06 BP 100/60 03/18/17 13:06 Pulse Ox 99 03/18/17 16:01 - Labs Result Diagrams: 03/18/17 14:15 03/18/17 14:15 Labs: Laboratory Results - last 24 hr 03/18/17 15:52 pCO2 38 pO2 74 L HCO3 20.6 L ABG pH 7.33 L ABG Total CO2 21.2 L ABG O2 Saturation 97.7 ABG O2 Content 15.7 ABG Base Excess -5.4 L ABG Hemoglobin 12.0 ABG Carboxyhemoglobin 2.6 H POC ABG HHb (Measured) 2.2 ABG Methemoglobin 2.7 ABG O2 Capacity 16.1 Serge Test Yes A-a O2 Difference 28.0 Hgb O2 Saturation 92.6 L FiO2 21.0 Assessment & Plan - Assessment and Plan (Free Text) Assessment: 57 yr old M admitted for hyperosmolar hyperglycemic state with blood sugar of 984mg/dL, polyuria and polydipsia. Sugar remained above 500mg/dL s/p stat regular insulin 10 units IV. Patient has PMHx of HIV, DM Type II, HTN, HLD, TIA , CAD/[place] x 1 stent 2015, CKD stage 3B. Plan: Hyperosmolar Hyperglycemic state -Blood glucose 984mg/dL on admission, arterial pH 7.33, serum HCO3 20.6, no ketonuria, K 5.6 -ER treatment: Regular insulin 10 units IV once, 2L NS bolus -started on Insulin drip in ER-continue -IV fluids NS at 250 mls/hr -admit to ICU -accucheck Q2H DM Type II -uncontrolled -insulin drip -Accucheck Q2 hrs -hold home med: Alogliptin Benzoate 25mg PO QD CAD/[place] s/p 1 2015 -controlled -continue home meds: Carvedilol 25mg PO QD, Lisinopril 40mg PO QD, Plavix 75mg PO QD, ASA 81 mg PO QD Hypertension -controlled -continue home meds: Chlorthalidone 25mg PO QD, Nifedipine ER 60mg PO QD HIV -asymptomatic -Absolute CD4 count 244 , CD4 % 10.6 (12/31/16) -continue home meds: Prezista 600mg PO QD, Norvir 100mg PO BID, Epivir 150mg PO QD, Tivicay 50mg PO QD, Bactrim DS 800-160 PO QD, Zithromax 600mg PO QWeek HLD -controlled -continue home med: Lipitor 10mg PO QD CKD Stage 3B -BUN/Cr 51/2.0 GFR 35 -adjust meds for renal dosing -monitor BUN/Cr Tinea Cruris -Clotrimazole topical BPH -controlled -continue home med: Tamsulosin HCl 0.4mg PO QD DVT Prophylaxis -Lovenox 30mg SC QD -SCD's - Date & Time Date: 03/18/17 Time: 04:30
--- NOTE | 2017-03-18 17:51 | CP.PCM.CON ---
History of Present Illness - History of Present Illness History of Present Illness: 56yo M. PMHx DM type 2, HIV, HTN, TIA, CKD, CAD with a stent, CABG, renal cyst. Patient p/w dehydration and DKA. Review of Systems - Review of Systems All systems: reviewed and no additional remarkable complaints except - Gastrointestinal Gastrointestinal: Abdominal Pain Past Patient History - Infectious Disease Hx of Infectious Diseases: None - Past Medical History & Family History Past Medical History?: Yes - Past Social History Smoking Status: Never Smoked - CARDIAC Hx Hypercholesterolemia: Yes Hx Hypertension: Yes - PULMONARY Hx Bronchitis: Yes - NEUROLOGICAL Hx Transient Ischemic Attacks (TIA): Yes - HEENT Hx HEENT Problems: No - RENAL Hx Chronic Kidney Disease: No - ENDOCRINE/METABOLIC Hx Endocrine Disorders: Yes Hx Diabetes Mellitus Type 2: Yes - HEMATOLOGICAL/ONCOLOGICAL Hx Human Immunodeficiency Virus (HIV): Yes - INTEGUMENTARY Hx Dermatological Problems: No - MUSCULOSKELETAL/RHEUMATOLOGICAL Hx Musculoskeletal Disorders: No Hx Falls: No - GASTROINTESTINAL Hx Gastrointestinal Disorders: No - GENITOURINARY/GYNECOLOGICAL Hx Genitourinary Disorders: Yes Hx Prostate Problems: Yes - PSYCHIATRIC Hx Psychophysiologic Disorder: No Hx Substance Use: No - SURGICAL HISTORY Hx Coronary Artery Bypass Graft: Yes (x 1 stent) Hx Coronary Stent: Yes - ANESTHESIA Hx Anesthesia: Yes Hx Anesthesia Reactions: No Hx Malignant Hyperthermia: No Meds Allergies/Adverse Reactions: Allergies Allergy/AdvReac Type Severity Reaction Status Date / Time No Known Allergies Allergy Verified 01/02/17 15:31 - Medications Medications: Current Medications Dextrose (Dextrose 50% Inj) 0 ml IV STAT PRN; Protocol PRN Reason: Hyglycemia Protocol Dextrose (Glutose 15) 0 gm PO ONCE PRN; Protocol PRN Reason: Hypoglycemia Protocol Glucagon (Glucagen Diagnostic Kit) 0 mg IM STAT PRN; Protocol PRN Reason: Hypoglycemia Protocol Insulin Human Regular 100 (units/ Sodium Chloride) 101 mls @ 10.1 mls/hr IV .Q10H SHAMAR; 10 UNITS/HR PRN Reason: Protocol Last Admin: 03/18/17 17:39 Dose: 10.1 mls/hr Warfarin Sodium (Coumadin) 5 mg PO QD5 SHAMAR PRN Reason: Protocol Stop: 03/19/17 17:01 Physical Exam - Head Exam Head Exam: ATRAUMATIC, NORMAL INSPECTION, NORMOCEPHALIC - Eye Exam Eye Exam: EOMI, Normal appearance, PERRL - Respiratory Exam Respiratory Exam: Clear to Auscultation Bilateral, NORMAL BREATHING PATTERN - Cardiovascular Exam Cardiovascular Exam: Tachycardia, REGULAR RHYTHM - GI/Abdominal Exam GI & Abdominal Exam: Normal Bowel Sounds, Soft, Tenderness - Neurological Exam Neurological exam: Alert, CN II-XII Intact, Oriented x3, Reflexes Normal - Psychiatric Exam Psychiatric exam: Normal Affect, Normal Mood Results - Vital Signs Recent Vital Signs: Last Vital Signs Temp 98 F 03/18/17 13:06 Pulse 70 03/18/17 17:16 Resp 20 03/18/17 13:06 BP 100/60 03/18/17 13:06 Pulse Ox 99 03/18/17 17:16 - Labs Result Diagrams: 03/18/17 14:15 03/18/17 14:15 Labs: Laboratory Results - last 24 hr 03/18/17 15:52 pCO2 38 pO2 74 L HCO3 20.6 L ABG pH 7.33 L ABG Total CO2 21.2 L ABG O2 Saturation 97.7 ABG O2 Content 15.7 ABG Base Excess -5.4 L ABG Hemoglobin 12.0 ABG Carboxyhemoglobin 2.6 H POC ABG HHb (Measured) 2.2 ABG Methemoglobin 2.7 ABG O2 Capacity 16.1 Serge Test Yes A-a O2 Difference 28.0 Hgb O2 Saturation 92.6 L FiO2 21.0 Assessment & Plan (1) DKA, type 2 Assessment and Plan: 56yo M. PMHx DM type 2, HIV, HTN, TIA, CKD stage 3B, CAD with a stent (2016), CABG, renal cyst. Patient p/w dehydration and DKA. Neuro: alert and oriented x 3 Pulm: no acute issues, breathing spontaneously on room air. CV: hemodynamically stable Hem: no acute issues Renal: acute on chronic kidney injury secondary to hypovolemia, aggressive fluid resuscitation. NS+20KCL@125 Endo: DKA type 2, insulin drip. GI: NPO ID: no acute issues. DVT proph - lovenox GI proph - not currently indicated huertas for strict I/O's during acute illness Code status - full code Critical Care Time spent 35 minutes Multi-disciplinary rounds were performed with house staff, nursing, speech therapy, respiratory therapy, pharmacy and nutrition with integrated input from the primary team/attending and other consulting services. The documented time is cumulative and includes review of patient data/exams/labs/chart review and examination of the patient on rounds and throughout the day; time is exclusive of any procedures or teaching time. Status: Acute
[2017-03-18] MEDS ORDERED: Potassium Chl 20 mEq in NS 1,000 ML IV SCH (18:45)
[2017-03-18 20:45] LABS: CALCIUM 9.4 mg/dL (8.4-10.2)
[2017-03-18 20:54] LABS: ABG ALLEN TEST YES; ARTERIAL BLOOD GAS HCO3 24.4 mmol/L (21-28); ARTERIAL BLOOD GAS HEMOGLOBIN 11.9 g/dL (11.7-17.4); ARTERIAL BLOOD GAS O2 CAPACITY 16.3 mL/dL (16-24); ARTERIAL BLOOD GAS O2 SAT 98.3 % (95-98); ARTERIAL BLOOD GAS PCO2 33 mm/Hg (35-45); ARTERIAL BLOOD GAS PH 7.45 (7.35-7.45); ARTERIAL BLOOD GAS PO2 84 mm/Hg (80-100); ARTERIAL BLOOD GAS TCO2 23.9 mmol/L (22-28)
[2017-03-18] MEDS ORDERED: Potassium Ch 20mEq in D5-1/2NS 1,000 ML IV SCH (21:00)
[2017-03-18] MEDS ORDERED: Potassium CL 10 MEQ/50 ML 50 ML IVPB ONE (21:01)
[2017-03-18] MEDS ORDERED: Insulin Detemir 100 Units/ml Inj SC SCH (22:00)
--- NOTE | 2017-03-18 22:06 | CP.PCM.PN ---
Subjective - Date & Time of Evaluation Date of Evaluation: 03/18/17 Time of Evaluation: 20:45 - Subjective Subjective: Pt is seen and examined at bedside. Denies any new complaints or problems, including the denial of fevers/chills, diaphoresis, nausea, vomiting, diarrhea, headaches, dizziness, or recent vision changes. Active monitoring indicates his lab results normalizing, trending towards resolution of his DKA. Plasma Glucose is 180, Bicarb is 21, Anion Gap is 12, and pH is 7.45. AAOx3 EOMI, PERRL RRR, S1 S2 CTA b/l No abd tenderness, guarding, distension No calf tenderness, no pedal edema 57 yo M w PMHx of DM2, HTN, and HIV is currently admitted to ICU for DKA -Insulin Drip beginning at 10u/hr ---Currently at 2u/hr as per protocol (FS now 180) ---Based on weight, will begin pt on Levemir 24u -----will d/c insulin drip 3-4 hrs following Levemir ---Based on weight, will begin Lispro 8u TID ---Medium Insulin Sliding Scale -NS @ 125mL/hr w 20 mEq of K; switched to D5 1/2NS @125mL/hr w 20 mEq of K upon decreasing glucose lvl -Pt placed on PO diabetic diet -f/u overnight BMP, Mg, Phos -f/u AM labs -f/u FS ACHS -Plan d/w overnight hospitalist
[2017-03-18] MEDS: Insulin Lispro (humaLOG) 100 Units/ml Inj SC SCH (22:13)
[2017-03-19 01:07] LABS: MAGNESIUM 2.3 MG/DL (1.6-2.3)
[2017-03-19 05:27] LABS: ALB/GLOB RATIO 1.2 (1.0-2.1); ALBUMIN 3.7 g/dL (3.5-5.0); ALT/SGPT 27 U/L (21-72); AST/SGOT 24 U/L (17-59); BLOOD UREA NITROGEN 32 mg/dl (9-20); CALCIUM 8.7 mg/dL (8.4-10.2); EOS # 0.2 K/uL (0.0-0.7); EOS % 4.7 % (0.0-4.0); GFR AFRICAN-AMERICAN 59; GFR NON-AFRICAN AMERICAN 48; HDL CHOLESTEROL 25 MG/DL (30-70); LYMPH # 1.5 K/uL (1.0-4.3); LYMPH % 35.6 % (20.0-40.0); MEAN CELL VOLUME 92.5 fl (80.0-94.0); MEAN CORPUSCULAR HEMOGLOBIN 32.6 pg (27.0-31.0); MEAN CORPUSCULAR HGB CONC 35.2 g/dL (33.0-37.0); MONO # 0.4 K/uL (0.0-0.8); NEUT % 48.7 % (50.0-75.0); NRBC % 0.1 % (0.0-0.0); RBC 3.38 Mil/uL (4.40-5.90); RED CELL DISTRIBUTION WIDTH 14.4 % (11.5-14.5); WHITE BLOOD COUNT 4.1 K/uL (4.8-10.8)
[2017-03-19 05:54] LABS: LDL CHOLESTEROL < 30 mg/dL (0-129)
[2017-03-19] MEDS: Insulin Lispro (humaLOG) 100 Units/ml Inj SC SCH ×3 (06:35→10:57)
--- NOTE | 2017-03-19 07:03 | CP.PCM.PN ---
Subjective - Date & Time of Evaluation Date of Evaluation: 03/19/17 Time of Evaluation: 06:50 - Subjective Subjective: Patient seen and examined at bedside. Reports he is very hungry this AM. Denies chest pain, weakness, dizziness, SOB or n/v. Afebrile, AA and O x3. Polyuria and polydipsia persist. Objective - Vital Signs/Intake and Output Vital Signs (last 24 hours): Temp Pulse Resp BP Pulse Ox 98.8 F 71 21 115/75 99 03/19/17 04:00 03/19/17 06:00 03/19/17 06:00 03/19/17 06:00 03/19/17 06:00 Intake and Output: 03/19/17 03/19/17 06:59 18:59 Intake Total 1222 Output Total 600 Balance 622 - Medications Medications: Current Medications Aspirin (Ecotrin) 81 mg PO DAILY [facility] Atorvastatin Calcium (Lipitor) 10 mg PO DAILY [facility] Chlorthalidone (Hygroton) 25 mg PO DAILY [facility] Clopidogrel Bisulfate (Plavix) 75 mg PO DAILY [facility] Darunavir (Prezista) 600 mg PO BID [facility] Dextrose (Dextrose 50% Inj) 0 ml IV STAT PRN; Protocol PRN Reason: Hyglycemia Protocol Dextrose (Glutose 15) 0 gm PO ONCE PRN; Protocol PRN Reason: Hypoglycemia Protocol Dolutegravir Sodium (Tivicay) 50 mg PO DAILY [facility] Enoxaparin Sodium (Lovenox) 30 mg SC DAILY [facility] PRN Reason: Protocol Famotidine (Pepcid) 20 mg PO BID [facility] Glucagon (Glucagen Diagnostic Kit) 0 mg IM STAT PRN; Protocol PRN Reason: Hypoglycemia Protocol Insulin Detemir (Levemir) 24 units SC HS [facility] Last Admin: 03/18/17 22:14 Dose: 24 units Insulin Human Lispro (Humalog) 8 units SC TIDAC [facility] Last Admin: 03/19/17 06:37 Dose: 8 units Insulin Human Lispro (Humalog) 0 units SC ACHS [facility] PRN Reason: Protocol Last Admin: 03/19/17 06:35 Dose: 10 units Lamivudine (Epivir) 150 mg PO DAILY [facility] Lisinopril (Zestril) 40 mg PO DAILY [facility] Nifedipine (Procardia Xl) 60 mg PO DAILY [facility] Pneumococcal Polyvalent Vaccine (Pneumovax 23 Vaccine) 0.5 ml IM .ONCE ONE Stop: 03/19/17 09:01 Ritonavir (Norvir) 100 mg PO BID SHAMAR Tamsulosin HCl (Flomax) 0.4 mg PO DAILY [facility] Trimethoprim/Sulfamethoxazole (Bactrim Ds Tab) 1 tab PO DAILY SHAMAR - Labs Labs: 03/19/17 04:20 03/19/17 04:20 - Constitutional Appears: Non-toxic, No Acute Distress - Head Exam Head Exam: ATRAUMATIC, NORMOCEPHALIC - Eye Exam Eye Exam: EOMI, PERRL - ENT Exam ENT Exam: Mucous Membranes Moist - Neck Exam Neck Exam: Full ROM. absent: Lymphadenopathy - Respiratory Exam Respiratory Exam: Clear to Ausculation Bilateral, NORMAL BREATHING PATTERN - Cardiovascular Exam Cardiovascular Exam: REGULAR RHYTHM, +S1, +S2 - GI/Abdominal Exam GI & Abdominal Exam: Soft (obese), Normal Bowel Sounds. absent: Distended, Tenderness - Extremities Exam Extremities Exam: Full ROM (right hallux amputated). absent: Calf Tenderness, Pedal Edema - Back Exam Back Exam: absent: CVA tenderness (L), CVA tenderness (R) - Neurological Exam Neurological Exam: Alert, Awake, CN II-XII Intact, Oriented x3 - Psychiatric Exam Psychiatric exam: Normal Affect, Normal Mood - Skin Skin Exam: Dry, Intact, Warm Assessment and Plan - Assessment and Plan (Free Text) Assessment: 57 yr old M admitted for DKA, which has now resolved s/p treatment with IV fluids and insulin drip. Patient blood glucose remains uncontrolled, now on scheduled insulin dose, will monitor and adjust as needed. Patient has PMHx of HIV, DM Type II, HTN, HLD, TIA, CAD/[place] x 1 2015, CKD stage 3B. Plan: DKA -resolved, anion gap normalized (11) -on admission Blood glucose 984mg/dL on admission, arterial pH 7.33, serum HCO3 20.6, no ketonuria, K 5.6, serum anion gap 20 -ER treatment: Regular insulin 10 units IV once, 2L NS bolus -was on Insulin drip, d/c overnight -Insulin Detemir 24 units SC HS, Insulin Lispro 8 units SC TIDAC, Insulin Lispro sliding scale: [facility] dose [facility] -[facility] -Insulin Detemir 24 units SC HS -Insulin Lispro 8 units SC TIDAC -Insulin Lispro sliding scale: high dose protocol -hypoglycemia protocol -hold home med: Alogliptin Benzoate 25mg PO QD -consistent carbohydrate diet -nutrition/tobacco flavorer consult appreciated -[employer] Mill Operator Dr. Grijalva consult appreciated, will follow recommendations CAD/[place] s/p 2015 -controlled -continue home meds: Carvedilol 25mg PO QD, Lisinopril 40mg PO QD, Plavix 75mg PO QD, ASA 81 mg PO QD Hypertension -controlled -continue home meds: Chlorthalidone 25mg PO QD, Nifedipine ER 60mg PO QD HIV -asymptomatic -Absolute CD4 count 244 , CD4 % 10.6 (12/31/16) -continue home meds: Prezista 600mg PO QD, Norvir 100mg PO BID, Epivir 150mg PO QD, Tivicay 50mg PO QD, Bactrim DS 800-160 PO QD, Zithromax 600mg PO QWeek HLD -controlled -continue home med: Lipitor 10mg PO QD CKD Stage 3 -chronic, stable -BUN/Cr 32/1.5 GFR 48 -adjust meds for renal dosing -monitor BUN/Cr Tinea Cruris -Clotrimazole topical BPH -controlled -continue home med: Tamsulosin HCl 0.4mg PO QD DVT/GI Prophylaxis -Lovenox 30mg SC QD -SCD's -Famotidine 20mg PO BID
[2017-03-19 07:29] LABS: T4 8.02 ug/dl (5.5-11.0)
[2017-03-19] MEDS ORDERED: Enoxaparin 30 mg Syringe SC SCH (09:00)
[2017-03-19] MEDS ORDERED: NIFEdipine 60 mg ER Tab PO SCH (09:00)
[2017-03-19] MEDS ORDERED: Pneumococcal 23-Valent Vaccine IM ONE (09:00)
[2017-03-19] MEDS ORDERED: Tmp-Smz 800 mg-160 mg DS Tab PO SCH (09:00)
--- NOTE | 2017-03-19 09:50 | CARD ---
APPROVED REPORT EKG Measurement Heart [id number] <Conclusion> Normal sinus rhythm T wave abnormality, consider inferolateral ischemia Abnormal ECG
[2017-03-19] MEDS ORDERED: Insulin Lispro (humaLOG) 100 Units/ml Inj SC SCH ×3 (10:30→11:30)
[2017-03-19] MEDS ORDERED: Sodium Chloride 0.45% 1,000 ML IV SCH (11:30)
[2017-03-19] MEDS ORDERED: Insulin Regular 100 units/ml SC SCH (11:30)
[2017-03-19 11:37] LABS: BARBITURATES, UR NEGATIVE (NEGATIVE); BENZODIAZEPINES, UR NEGATIVE (NEGATIVE); OPIATES, UR NEGATIVE (NEGATIVE); PHENCYCLIDINE, UR NEGATIVE (NEGATIVE)
[2017-03-19 12:13] VITALS: BP 104/71; PULSE 74; RESP 21; TEMP 98.2; O2SAT 100
--- NOTE | 2017-03-19 12:30 | CP.CCUPN ---
CCU Subjective - Physician Review Events Since Last Encounter (Free Text): 03/19/17 12:30 Patient is clinically improved today, no complaints. CCU Objective - Vital Signs / Intake & Output Vital Signs (Last 4 hours): Vital Signs Temp Pulse Resp BP Pulse Ox 03/19/17 12:12 98.2 F 74 21 104/71 100 03/19/17 10:00 72 23 98 Intake and Output (Last 8hrs): Intake & Output 03/18/17 03/19/17 03/19/17 22:59 06:59 14:59 Intake Total 53 1169 600 Output Total 300 300 800 Balance -247 869 -200 Intake: IV 3 1049 0 Intake, Piggyback 50 Oral 120 600 Output: Urine 300 300 800 Urine, Voided 300 300 800 Other: # Voids Urine, Voided 1 1 1 - Physical Exam Head: Positive for: Atraumatic, Normocephalic Pupils: Positive for: PERRL Extroacular Muscles: Positive for: EOMI Mouth: Positive for: Moist Mucous Membranes Respiratory/Chest: Positive for: Clear to Auscultation, Good Air Exchange Cardiovascular: Positive for: Regular Rate and Rhythm Abdomen: Positive for: Normal Bowel Sounds. Negative for: Tenderness, Distention, Peritoneal Signs Neurological: Positive for: GCS=15, CN II-XII Intact, Speech Normal Psychiatric: Positive for: Alert, Oriented x 3 - Medications Active Medications: Active Medications Generic Name Dose Route Start Last Admin Trade Name Freq PRN Reason Stop Dose Admin Aspirin 81 mg 03/19/17 09:00 03/19/17 08:18 Ecotrin PO 81 mg DAILY SHAMAR Administration Atorvastatin Calcium 10 mg 03/19/17 09:00 03/19/17 08:18 Lipitor PO 10 mg DAILY SHAMAR Administration Carvedilol 25 mg 03/19/17 11:00 Coreg PO DAILY SHAMAR Chlorthalidone 25 mg 03/19/17 09:00 03/19/17 08:18 Hygroton PO 25 mg DAILY SHAMAR Administration Clopidogrel Bisulfate 75 mg 03/19/17 09:00 03/19/17 08:18 Plavix PO 75 mg DAILY SHAMAR Administration Darunavir 600 mg 03/19/17 09:00 03/19/17 08:18 Prezista PO 600 mg BID SHAMAR Administration Dextrose 0 ml 03/18/17 15:04 Dextrose 50% Inj IV STAT PRN Hyglycemia Protocol Protocol Dextrose 0 gm 03/18/17 15:04 Glutose 15 PO ONCE PRN Hypoglycemia Protocol Protocol Dolutegravir Sodium 50 mg 03/19/17 09:00 03/19/17 10:58 Tivicay PO 50 mg DAILY SHAMAR Administration Enoxaparin Sodium 30 mg 03/19/17 09:00 03/19/17 08:17 Lovenox SC 30 mg DAILY SHAMAR Administration Protocol Famotidine 20 mg 03/19/17 09:00 03/19/17 08:18 Pepcid PO 20 mg BID SHAMAR Administration Glucagon 0 mg 03/18/17 15:04 Glucagen Diagnostic Kit IM STAT PRN Hypoglycemia Protocol Protocol Sodium Chloride 1,000 mls @ 125 mls/hr 03/19/17 11:30 Sodium Chloride 0.45% IV 03/20/17 11:26 .Q8H [facility] Insulin Detemir 34 units 03/19/17 22:00 Levemir SC HS SHAMAR Insulin Human Lispro 12 units 03/19/17 11:30 Humalog SC TIDAC SHAMAR Insulin Human Lispro 0 units 03/19/17 11:30 Humalog SC ACHS SHAMAR Protocol Lamivudine 150 mg 03/19/17 09:00 03/19/17 08:18 Epivir PO 150 mg DAILY SHAMAR Administration Lisinopril 40 mg 03/19/17 09:00 03/19/17 08:18 Zestril PO 40 mg DAILY SHAMAR Administration Nifedipine 60 mg 03/19/17 09:00 03/19/17 08:18 Procardia Xl PO 60 mg DAILY SHAMAR Administration Ritonavir 100 mg 03/19/17 09:00 03/19/17 08:18 Norvir PO 100 mg BID SHAMAR Administration Tamsulosin HCl 0.4 mg 03/19/17 09:00 03/19/17 08:19 Flomax PO 0.4 mg DAILY SHAMAR Administration Trimethoprim/Sulfamethoxazole 1 tab 03/19/17 09:00 03/19/17 08:18 Bactrim Ds Tab PO 1 tab DAILY SHAMAR Administration - Patient Studies Lab Studies: Lab Studies 03/19/17 03/19/17 03/19/17 Range/Units 12:09 11:14 10:39 WBC (4.8-10.8) K/uL RBC (4.40-5.90) Mil/uL Hgb (12.0-18.0) g/dL Hct (35.0-51.0) % MCV (80.0-94.0) fl MCH (27.0-31.0) pg MCHC (33.0-37.0) g/dL RDW (11.5-14.5) % Plt Count (130-400) K/uL MPV (7.2-11.7) fl Neut % (Auto) (50.0-75.0) % Lymph % (Auto) (20.0-40.0) % Webb % (Auto) (0.0-10.0) % Eos % (Auto) (0.0-4.0) % Baso % (Auto) (0.0-2.0) % Neut # (1.8-7.0) K/uL Lymph # (1.0-4.3) K/uL Webb # (0.0-0.8) K/uL Eos # (0.0-0.7) K/uL Baso # (0.0-0.2) K/uL pCO2 (35-45) mm/Hg pO2 (80-100) mm/Hg HCO3 (21-28) mmol/L ABG pH (7.35-7.45) ABG Total CO2 (22-28) mmol/L ABG O2 Saturation (95-98) % ABG O2 Content (15-23) ML/dL ABG Base Excess (-2.0-3.0) mmol/L ABG Hemoglobin (11.7-17.4) g/dL ABG Carboxyhemoglobin (0.5-1.5) % POC ABG HHb (Measured) (0.0-5.0) % ABG Methemoglobin (0.0-3.0) % ABG O2 Capacity (16-24) mL/dL Serge Test A-a O2 Difference mm/Hg Hgb O2 Saturation (95.0-98.0) % FiO2 % Sodium (132-148) mmol/l Potassium (3.6-5.0) MMOL/L Chloride (98-107) mmol/L Carbon Dioxide (22-30) mmol/L Anion Gap (10-20) BUN (9-20) mg/dl Creatinine (0.8-1.5) mg/dL Est GFR ( Amer) Est GFR (Non-Af Amer) POC Glucose (mg/dL) 380 H 401 H* (65-110) mg/dL Random Glucose (75-110) mg/dL Calcium (8.4-10.2) mg/dL Phosphorus (2.5-4.5) mg/dl Magnesium (1.6-2.3) MG/DL Total Bilirubin (0.2-1.3) mg/dl AST (17-59) U/L ALT (21-72) U/L Alkaline Phosphatase (38-126) U/L Total Protein (6.3-8.2) G/DL Albumin (3.5-5.0) g/dL Globulin (2.2-3.9) gm/dL Albumin/Globulin Ratio (1.0-2.1) Triglycerides (0-149) mg/DL Cholesterol (0-199) mg/dL LDL Cholesterol Direct (0-129) mg/dL HDL Cholesterol (30-70) MG/DL Thyroxine (T4) (5.5-11.0) ug/dl TSH 3rd Generation (0.46-4.68) mIU/ML Urine Opiates Screen Negative (NEGATIVE) Urine Methadone Screen Negative (NEGATIVE) Ur Barbiturates Screen Negative (NEGATIVE) Ur Phencyclidine Scrn Negative (NEGATIVE) Ur Amphetamines Screen Negative (NEGATIVE) U Benzodiazepines Scrn Negative (NEGATIVE) U Oth Cocaine Metabols Negative (NEGATIVE) U Cannabinoids Screen Negative (NEGATIVE) 03/19/17 03/19/17 03/19/17 Range/Units 05:37 04:20 04:20 WBC 4.1 L (4.8-10.8) K/uL RBC 3.38 L (4.40-5.90) Mil/uL Hgb 11.0 L (12.0-18.0) g/dL Hct 31.3 L (35.0-51.0) % MCV 92.5 D (80.0-94.0) fl MCH 32.6 H (27.0-31.0) pg MCHC 35.2 (33.0-37.0) g/dL RDW 14.4 (11.5-14.5) % Plt Count 183 (130-400) K/uL MPV 8.0 (7.2-11.7) fl Neut % (Auto) 48.7 L (50.0-75.0) % Lymph % (Auto) 35.6 (20.0-40.0) % Webb % (Auto) 10.0 (0.0-10.0) % Eos % (Auto) 4.7 H (0.0-4.0) % Baso % (Auto) 1.0 (0.0-2.0) % Neut # 2.0 (1.8-7.0) K/uL Lymph # 1.5 (1.0-4.3) K/uL Webb # 0.4 (0.0-0.8) K/uL Eos # 0.2 (0.0-0.7) K/uL Baso # 0.0 (0.0-0.2) K/uL pCO2 (35-45) mm/Hg pO2 (80-100) mm/Hg HCO3 (21-28) mmol/L ABG pH (7.35-7.45) ABG Total CO2 (22-28) mmol/L ABG O2 Saturation (95-98) % ABG O2 Content (15-23) ML/dL ABG Base Excess (-2.0-3.0) mmol/L ABG Hemoglobin (11.7-17.4) g/dL ABG Carboxyhemoglobin (0.5-1.5) % POC ABG HHb (Measured) (0.0-5.0) % ABG Methemoglobin (0.0-3.0) % ABG O2 Capacity (16-24) mL/dL Serge Test A-a O2 Difference mm/Hg Hgb O2 Saturation (95.0-98.0) % FiO2 % Sodium 130 L (132-148) mmol/l Potassium 3.7 (3.6-5.0) MMOL/L Chloride 100 (98-107) mmol/L Carbon Dioxide 23 (22-30) mmol/L Anion Gap 11 (10-20) BUN 32 H (9-20) mg/dl Creatinine 1.5 (0.8-1.5) mg/dL Est GFR ( Amer) 59 Est GFR (Non-Af Amer) 48 POC Glucose (mg/dL) 402 H* (65-110) mg/dL Random Glucose 417 H* D (75-110) mg/dL Calcium 8.7 (8.4-10.2) mg/dL Phosphorus (2.5-4.5) mg/dl Magnesium (1.6-2.3) MG/DL Total Bilirubin 0.5 (0.2-1.3) mg/dl AST 24 (17-59) U/L ALT 27 (21-72) U/L Alkaline Phosphatase 71 (38-126) U/L Total Protein 6.9 (6.3-8.2) G/DL Albumin 3.7 (3.5-5.0) g/dL Globulin 3.2 (2.2-3.9) gm/dL Albumin/Globulin Ratio 1.2 (1.0-2.1) Triglycerides 503 H D (0-149) mg/DL Cholesterol 174 (0-199) mg/dL LDL Cholesterol Direct < 30 (0-129) mg/dL HDL Cholesterol 25 L (30-70) MG/DL Thyroxine (T4) 8.02 (5.5-11.0) ug/dl TSH 3rd Generation 1.38 (0.46-4.68) mIU/ML Urine Opiates Screen (NEGATIVE) Urine Methadone Screen (NEGATIVE) Ur Barbiturates Screen (NEGATIVE) Ur Phencyclidine Scrn (NEGATIVE) Ur Amphetamines Screen (NEGATIVE) U Benzodiazepines Scrn (NEGATIVE) U Oth Cocaine Metabols (NEGATIVE) U Cannabinoids Screen (NEGATIVE) 03/19/17 03/18/17 03/18/17 Range/Units 00:30 22:10 21:08 WBC (4.8-10.8) K/uL RBC (4.40-5.90) Mil/uL Hgb (12.0-18.0) g/dL Hct (35.0-51.0) % MCV (80.0-94.0) fl MCH (27.0-31.0) pg MCHC (33.0-37.0) g/dL RDW (11.5-14.5) % Plt Count (130-400) K/uL MPV (7.2-11.7) fl Neut % (Auto) (50.0-75.0) % Lymph % (Auto) (20.0-40.0) % Webb % (Auto) (0.0-10.0) % Eos % (Auto) (0.0-4.0) % Baso % (Auto) (0.0-2.0) % Neut # (1.8-7.0) K/uL Lymph # (1.0-4.3) K/uL Webb # (0.0-0.8) K/uL Eos # (0.0-0.7) K/uL Baso # (0.0-0.2) K/uL pCO2 (35-45) mm/Hg pO2 (80-100) mm/Hg HCO3 (21-28) mmol/L ABG pH (7.35-7.45) ABG Total CO2 (22-28) mmol/L ABG O2 Saturation (95-98) % ABG O2 Content (15-23) ML/dL ABG Base Excess (-2.0-3.0) mmol/L ABG Hemoglobin (11.7-17.4) g/dL ABG Carboxyhemoglobin (0.5-1.5) % POC ABG HHb (Measured) (0.0-5.0) % ABG Methemoglobin (0.0-3.0) % ABG O2 Capacity (16-24) mL/dL Serge Test A-a O2 Difference mm/Hg Hgb O2 Saturation (95.0-98.0) % FiO2 % Sodium 132 (132-148) mmol/l Potassium 3.5 L (3.6-5.0) MMOL/L Chloride 101 (98-107) mmol/L Carbon Dioxide 23 (22-30) mmol/L Anion Gap 12 (10-20) BUN 38 H (9-20) mg/dl Creatinine 1.6 H (0.8-1.5) mg/dL Est GFR ( Amer) 54 Est GFR (Non-Af Amer) 45 POC Glucose (mg/dL) 155 H 113 H (65-110) mg/dL Random Glucose 250 H (75-110) mg/dL Calcium 9.0 (8.4-10.2) mg/dL Phosphorus 4.1 (2.5-4.5) mg/dl Magnesium 2.3 (1.6-2.3) MG/DL Total Bilirubin (0.2-1.3) mg/dl AST (17-59) U/L ALT (21-72) U/L Alkaline Phosphatase (38-126) U/L Total Protein (6.3-8.2) G/DL Albumin (3.5-5.0) g/dL Globulin (2.2-3.9) gm/dL Albumin/Globulin Ratio (1.0-2.1) Triglycerides (0-149) mg/DL Cholesterol (0-199) mg/dL LDL Cholesterol Direct (0-129) mg/dL HDL Cholesterol (30-70) MG/DL Thyroxine (T4) (5.5-11.0) ug/dl TSH 3rd Generation (0.46-4.68) mIU/ML Urine Opiates Screen (NEGATIVE) Urine Methadone Screen (NEGATIVE) Ur Barbiturates Screen (NEGATIVE) Ur Phencyclidine Scrn (NEGATIVE) Ur Amphetamines Screen (NEGATIVE) U Benzodiazepines Scrn (NEGATIVE) U Oth Cocaine Metabols (NEGATIVE) U Cannabinoids Screen (NEGATIVE) 03/18/17 03/18/17 03/18/17 Range/Units 20:51 20:26 19:54 WBC (4.8-10.8) K/uL RBC (4.40-5.90) Mil/uL Hgb (12.0-18.0) g/dL Hct (35.0-51.0) % MCV (80.0-94.0) fl MCH (27.0-31.0) pg MCHC (33.0-37.0) g/dL RDW (11.5-14.5) % Plt Count (130-400) K/uL MPV (7.2-11.7) fl Neut % (Auto) (50.0-75.0) % Lymph % (Auto) (20.0-40.0) % Webb % (Auto) (0.0-10.0) % Eos % (Auto) (0.0-4.0) % Baso % (Auto) (0.0-2.0) % Neut # (1.8-7.0) K/uL Lymph # (1.0-4.3) K/uL Webb # (0.0-0.8) K/uL Eos # (0.0-0.7) K/uL Baso # (0.0-0.2) K/uL pCO2 33 L (35-45) mm/Hg pO2 84 (80-100) mm/Hg HCO3 24.4 (21-28) mmol/L ABG pH 7.45 (7.35-7.45) ABG Total CO2 23.9 (22-28) mmol/L ABG O2 Saturation 98.3 H (95-98) % ABG O2 Content 16.0 (15-23) ML/dL ABG Base Excess -0.6 (-2.0-3.0) mmol/L ABG Hemoglobin 11.9 (11.7-17.4) g/dL ABG Carboxyhemoglobin 1.6 H (0.5-1.5) % POC ABG HHb (Measured) 1.6 (0.0-5.0) % ABG Methemoglobin 1.7 (0.0-3.0) % ABG O2 Capacity 16.3 (16-24) mL/dL Serge Test Yes A-a O2 Difference 24.0 mm/Hg Hgb O2 Saturation 95.2 (95.0-98.0) % FiO2 21.0 % Sodium 135 (132-148) mmol/l Potassium 3.2 L (3.6-5.0) MMOL/L Chloride 102 (98-107) mmol/L Carbon Dioxide 21 L (22-30) mmol/L Anion Gap 15 (10-20) BUN 39 H (9-20) mg/dl Creatinine 1.7 H (0.8-1.5) mg/dL Est GFR ( Amer) 51 Est GFR (Non-Af Amer) 42 POC Glucose (mg/dL) 221 H (65-110) mg/dL Random Glucose 180 H (75-110) mg/dL Calcium 9.4 (8.4-10.2) mg/dL Phosphorus (2.5-4.5) mg/dl Magnesium (1.6-2.3) MG/DL Total Bilirubin (0.2-1.3) mg/dl AST (17-59) U/L ALT (21-72) U/L Alkaline Phosphatase (38-126) U/L Total Protein (6.3-8.2) G/DL Albumin (3.5-5.0) g/dL Globulin (2.2-3.9) gm/dL Albumin/Globulin Ratio (1.0-2.1) Triglycerides (0-149) mg/DL Cholesterol (0-199) mg/dL LDL Cholesterol Direct (0-129) mg/dL HDL Cholesterol (30-70) MG/DL Thyroxine (T4) (5.5-11.0) ug/dl TSH 3rd Generation (0.46-4.68) mIU/ML Urine Opiates Screen (NEGATIVE) Urine Methadone Screen (NEGATIVE) Ur Barbiturates Screen (NEGATIVE) Ur Phencyclidine Scrn (NEGATIVE) Ur Amphetamines Screen (NEGATIVE) U Benzodiazepines Scrn (NEGATIVE) U Oth Cocaine Metabols (NEGATIVE) U Cannabinoids Screen (NEGATIVE) 03/18/17 03/18/17 03/18/17 Range/Units 18:11 16:38 15:52 WBC (4.8-10.8) K/uL RBC (4.40-5.90) Mil/uL Hgb (12.0-18.0) g/dL Hct (35.0-51.0) % MCV (80.0-94.0) fl MCH (27.0-31.0) pg MCHC (33.0-37.0) g/dL RDW (11.5-14.5) % Plt Count (130-400) K/uL MPV (7.2-11.7) fl Neut % (Auto) (50.0-75.0) % Lymph % (Auto) (20.0-40.0) % Webb % (Auto) (0.0-10.0) % Eos % (Auto) (0.0-4.0) % Baso % (Auto) (0.0-2.0) % Neut # (1.8-7.0) K/uL Lymph # (1.0-4.3) K/uL Webb # (0.0-0.8) K/uL Eos # (0.0-0.7) K/uL Baso # (0.0-0.2) K/uL pCO2 38 (35-45) mm/Hg pO2 74 L (80-100) mm/Hg HCO3 20.6 L (21-28) mmol/L ABG pH 7.33 L (7.35-7.45) ABG Total CO2 21.2 L (22-28) mmol/L ABG O2 Saturation 97.7 (95-98) % ABG O2 Content 15.7 (15-23) ML/dL ABG Base Excess -5.4 L (-2.0-3.0) mmol/L ABG Hemoglobin 12.0 (11.7-17.4) g/dL ABG Carboxyhemoglobin 2.6 H (0.5-1.5) % POC ABG HHb (Measured) 2.2 (0.0-5.0) % ABG Methemoglobin 2.7 (0.0-3.0) % ABG O2 Capacity 16.1 (16-24) mL/dL Serge Test Yes A-a O2 Difference 28.0 mm/Hg Hgb O2 Saturation 92.6 L (95.0-98.0) % FiO2 21.0 % Sodium (132-148) mmol/l Potassium (3.6-5.0) MMOL/L Chloride (98-107) mmol/L Carbon Dioxide (22-30) mmol/L Anion Gap (10-20) BUN (9-20) mg/dl Creatinine (0.8-1.5) mg/dL Est GFR ( Amer) Est GFR (Non-Af Amer) POC Glucose (mg/dL) 448 H* > 500 H* (65-110) mg/dL Random Glucose (75-110) mg/dL Calcium (8.4-10.2) mg/dL Phosphorus (2.5-4.5) mg/dl Magnesium (1.6-2.3) MG/DL Total Bilirubin (0.2-1.3) mg/dl AST (17-59) U/L ALT (21-72) U/L Alkaline Phosphatase (38-126) U/L Total Protein (6.3-8.2) G/DL Albumin (3.5-5.0) g/dL Globulin (2.2-3.9) gm/dL Albumin/Globulin Ratio (1.0-2.1) Triglycerides (0-149) mg/DL Cholesterol (0-199) mg/dL LDL Cholesterol Direct (0-129) mg/dL HDL Cholesterol (30-70) MG/DL Thyroxine (T4) (5.5-11.0) ug/dl TSH 3rd Generation (0.46-4.68) mIU/ML Urine Opiates Screen (NEGATIVE) Urine Methadone Screen (NEGATIVE) Ur Barbiturates Screen (NEGATIVE) Ur Phencyclidine Scrn (NEGATIVE) Ur Amphetamines Screen (NEGATIVE) U Benzodiazepines Scrn (NEGATIVE) U Oth Cocaine Metabols (NEGATIVE) U Cannabinoids Screen (NEGATIVE) Laboratory Results - last 24 hr 03/18/17 03/18/17 03/18/17 15:52 16:38 18:11 WBC RBC Hgb Hct MCV MCH MCHC RDW Plt Count MPV Neut % (Auto) Lymph % (Auto) Webb % (Auto) Eos % (Auto) Baso % (Auto) Neut # Lymph # Webb # Eos # Baso # pCO2 38 pO2 74 L HCO3 20.6 L ABG pH 7.33 L ABG Total CO2 21.2 L ABG O2 Saturation 97.7 ABG O2 Content 15.7 ABG Base Excess -5.4 L ABG Hemoglobin 12.0 ABG Carboxyhemoglobin 2.6 H POC ABG HHb (Measured) 2.2 ABG Methemoglobin 2.7 ABG O2 Capacity 16.1 Serge Test Yes A-a O2 Difference 28.0 Hgb O2 Saturation 92.6 L FiO2 21.0 Sodium Potassium Chloride Carbon Dioxide Anion Gap BUN Creatinine Est GFR ( Amer) Est GFR (Non-Af Amer) POC Glucose (mg/dL) > 500 H* 448 H* Random Glucose Calcium Phosphorus Magnesium Total Bilirubin AST ALT Alkaline Phosphatase Total Protein Albumin Globulin Albumin/Globulin Ratio Triglycerides Cholesterol LDL Cholesterol Direct HDL Cholesterol Thyroxine (T4) TSH 3rd Generation Urine Opiates Screen Urine Methadone Screen Ur Barbiturates Screen Ur Phencyclidine Scrn Ur Amphetamines Screen U Benzodiazepines Scrn U Oth Cocaine Metabols U Cannabinoids Screen 03/18/17 03/18/17 03/18/17 19:54 20:26 20:51 WBC RBC Hgb Hct MCV MCH MCHC RDW Plt Count MPV Neut % (Auto) Lymph % (Auto) Webb % (Auto) Eos % (Auto) Baso % (Auto) Neut # Lymph # Webb # Eos # Baso # pCO2 33 L pO2 84 HCO3 24.4 ABG pH 7.45 ABG Total CO2 23.9 ABG O2 Saturation 98.3 H ABG O2 Content 16.0 ABG Base Excess -0.6 ABG Hemoglobin 11.9 ABG Carboxyhemoglobin 1.6 H POC ABG HHb (Measured) 1.6 ABG Methemoglobin 1.7 ABG O2 Capacity 16.3 Serge Test Yes A-a O2 Difference 24.0 Hgb O2 Saturation 95.2 FiO2 21.0 Sodium 135 Potassium 3.2 L Chloride 102 Carbon Dioxide 21 L Anion Gap 15 BUN 39 H Creatinine 1.7 H Est GFR ( Amer) 51 Est GFR (Non-Af Amer) 42 POC Glucose (mg/dL) 221 H Random Glucose 180 H Calcium 9.4 Phosphorus Magnesium Total Bilirubin AST ALT Alkaline Phosphatase Total Protein Albumin Globulin Albumin/Globulin Ratio Triglycerides Cholesterol LDL Cholesterol Direct HDL Cholesterol Thyroxine (T4) TSH 3rd Generation Urine Opiates Screen Urine Methadone Screen Ur Barbiturates Screen Ur Phencyclidine Scrn Ur Amphetamines Screen U Benzodiazepines Scrn U Oth Cocaine Metabols U Cannabinoids Screen 03/18/17 03/18/17 03/19/17 21:08 22:10 00:30 WBC RBC Hgb Hct MCV MCH MCHC RDW Plt Count MPV Neut % (Auto) Lymph % (Auto) Webb % (Auto) Eos % (Auto) Baso % (Auto) Neut # Lymph # Webb # Eos # Baso # pCO2 pO2 HCO3 ABG pH ABG Total CO2 ABG O2 Saturation ABG O2 Content ABG Base Excess ABG Hemoglobin ABG Carboxyhemoglobin POC ABG HHb (Measured) ABG Methemoglobin ABG O2 Capacity Serge Test A-a O2 Difference Hgb O2 Saturation FiO2 Sodium 132 Potassium 3.5 L Chloride 101 Carbon Dioxide 23 Anion Gap 12 BUN 38 H Creatinine 1.6 H Est GFR ( Amer) 54 Est GFR (Non-Af Amer) 45 POC Glucose (mg/dL) 113 H 155 H Random Glucose 250 H Calcium 9.0 Phosphorus 4.1 Magnesium 2.3 Total Bilirubin AST ALT Alkaline Phosphatase Total Protein Albumin Globulin Albumin/Globulin Ratio Triglycerides Cholesterol LDL Cholesterol Direct HDL Cholesterol Thyroxine (T4) TSH 3rd Generation Urine Opiates Screen Urine Methadone Screen Ur Barbiturates Screen Ur Phencyclidine Scrn Ur Amphetamines Screen U Benzodiazepines Scrn U Oth Cocaine Metabols U Cannabinoids Screen 03/19/17 03/19/17 03/19/17 04:20 04:20 05:37 WBC 4.1 L RBC 3.38 L Hgb 11.0 L Hct 31.3 L MCV 92.5 D MCH 32.6 H MCHC 35.2 RDW 14.4 Plt Count 183 MPV 8.0 Neut % (Auto) 48.7 L Lymph % (Auto) 35.6 Webb % (Auto) 10.0 Eos % (Auto) 4.7 H Baso % (Auto) 1.0 Neut # 2.0 Lymph # 1.5 Webb # 0.4 Eos # 0.2 Baso # 0.0 pCO2 pO2 HCO3 ABG pH ABG Total CO2 ABG O2 Saturation ABG O2 Content ABG Base Excess ABG Hemoglobin ABG Carboxyhemoglobin POC ABG HHb (Measured) ABG Methemoglobin ABG O2 Capacity Serge Test A-a O2 Difference Hgb O2 Saturation FiO2 Sodium 130 L Potassium 3.7 Chloride 100 Carbon Dioxide 23 Anion Gap 11 BUN 32 H Creatinine 1.5 Est GFR ( Amer) 59 Est GFR (Non-Af Amer) 48 POC Glucose (mg/dL) 402 H* Random Glucose 417 H* D Calcium 8.7 Phosphorus Magnesium Total Bilirubin 0.5 AST 24 ALT 27 Alkaline Phosphatase 71 Total Protein 6.9 Albumin 3.7 Globulin 3.2 Albumin/Globulin Ratio 1.2 Triglycerides 503 H D Cholesterol 174 LDL Cholesterol Direct < 30 HDL Cholesterol 25 L Thyroxine (T4) 8.02 TSH 3rd Generation 1.38 Urine Opiates Screen Urine Methadone Screen Ur Barbiturates Screen Ur Phencyclidine Scrn Ur Amphetamines Screen U Benzodiazepines Scrn U Oth Cocaine Metabols U Cannabinoids Screen 03/19/17 03/19/17 03/19/17 10:39 11:14 12:09 WBC RBC Hgb Hct MCV MCH MCHC RDW Plt Count MPV Neut % (Auto) Lymph % (Auto) Webb % (Auto) Eos % (Auto) Baso % (Auto) Neut # Lymph # Webb # Eos # Baso # pCO2 pO2 HCO3 ABG pH ABG Total CO2 ABG O2 Saturation ABG O2 Content ABG Base Excess ABG Hemoglobin ABG Carboxyhemoglobin POC ABG HHb (Measured) ABG Methemoglobin ABG O2 Capacity Serge Test A-a O2 Difference Hgb O2 Saturation FiO2 Sodium Potassium Chloride Carbon Dioxide Anion Gap BUN Creatinine Est GFR ( Amer) Est GFR (Non-Af Amer) POC Glucose (mg/dL) 401 H* 380 H Random Glucose Calcium Phosphorus Magnesium Total Bilirubin AST ALT Alkaline Phosphatase Total Protein Albumin Globulin Albumin/Globulin Ratio Triglycerides Cholesterol LDL Cholesterol Direct HDL Cholesterol Thyroxine (T4) TSH 3rd Generation Urine Opiates Screen Negative Urine Methadone Screen Negative Ur Barbiturates Screen Negative Ur Phencyclidine Scrn Negative Ur Amphetamines Screen Negative U Benzodiazepines Scrn Negative U Oth Cocaine Metabols Negative U Cannabinoids Screen Negative EKG/Cardiology Studies: Cardiology / EKG Studies 03/18/17 16:36 EKG [ELECTROCARDIOGRAM] Stat Comment: Mode Of Transportation: Reason For Exam: dizziness Isolation: Contact Fingerstick Blood Sugar Results: 380 Review of Systems - Review of Systems All systems: reviewed and no additional remarkable complaints except Critical Care Progress Note - Nutrition Nutrition: Nutrition Category Date Time Status Consistent Carbohydrate [DIET] Diets 03/18/17 Dinner Active Consistent Carbohydrate [DIET] Diets 03/19/17 Dinner Active Assessment/Plan (1) DKA, type 2 Assessment and plan: 56yo M. PMHx DM type 2, HIV, HTN, TIA, CKD stage 3B, CAD with a stent (2016), CABG, renal cyst. Patient p/w dehydration and DKA. Neuro: alert and oriented x 3 Pulm: no acute issues, breathing spontaneously on room air CV: hemodynamically stable Hem: no acute issues Renal: acute on chronic kidney injury improved. Endo: DM type 2, off of insulin drip, started on short acting insulin sliding scale, with meal dosing and lantus qhs. GI: diabetic diet ID: no acute issues. DVT proph - lovenox GI proph - not currently indicated Code status - full code Patient still hyperglycemic but out of DKA. Patient leaving AMA, despite advising him to stay for his own medical safety. He was warned that he could go into DKA again if not properly controlled. He said just give him the prescriptions and he will do it at home. Critical Care Time spent 35 minutes Multi-disciplinary rounds were performed with house staff, nursing, speech therapy, respiratory therapy, pharmacy and nutrition with integrated input from the primary team/attending and other consulting services. The documented time is cumulative and includes review of patient data/exams/labs/chart review and examination of the patient on rounds and throughout the day; time is exclusive of any procedures or teaching time. Current Visit: Yes Status: Acute
--- NOTE | 2017-03-19 15:30 | CP.PCM.DIS ---
Provider - Provider Date of Admission: 03/18/17 15:48 Attending physician: Darline Antonio MD Primary care physician: Dr. Hinojosa Consults: Dr. Grijalva -Endocrinology Time Spent in preparation of Discharge (in minutes): 30 Hospital Course - Lab Results Lab Results: Most Recent Lab Values WBC 4.1 K/uL (4.8-10.8) L 03/19/17 04:20 RBC 3.38 Mil/uL (4.40-5.90) L 03/19/17 04:20 Hgb 11.0 g/dL (12.0-18.0) L 03/19/17 04:20 Hct 31.3 % (35.0-51.0) L 03/19/17 04:20 MCV 92.5 fl (80.0-94.0) D 03/19/17 04:20 MCH 32.6 pg (27.0-31.0) H 03/19/17 04:20 MCHC 35.2 g/dL (33.0-37.0) 03/19/17 04:20 RDW 14.4 % (11.5-14.5) 03/19/17 04:20 Plt Count 183 K/uL (130-400) 03/19/17 04:20 MPV 8.0 fl (7.2-11.7) 03/19/17 04:20 Neut % (Auto) 48.7 % (50.0-75.0) L 03/19/17 04:20 Lymph % (Auto) 35.6 % (20.0-40.0) 03/19/17 04:20 [place] % (Auto) 10.0 % (0.0-10.0) 03/19/17 04:20 Eos % (Auto) 4.7 % (0.0-4.0) H 03/19/17 04:20 Baso % (Auto) 1.0 % (0.0-2.0) 03/19/17 04:20 Neut # 2.0 K/uL (1.8-7.0) 03/19/17 04:20 Lymph # 1.5 K/uL (1.0-4.3) 03/19/17 04:20 [place] # 0.4 K/uL (0.0-0.8) 03/19/17 04:20 Eos # 0.2 K/uL (0.0-0.7) 03/19/17 04:20 Baso # 0.0 K/uL (0.0-0.2) 03/19/17 04:20 pCO2 33 mm/Hg (35-45) L 03/18/17 20:51 pO2 84 mm/Hg (80-100) 03/18/17 20:51 HCO3 24.4 mmol/L (21-28) 03/18/17 20:51 ABG pH 7.45 (7.35-7.45) 03/18/17 20:51 ABG Total CO2 23.9 mmol/L (22-28) 03/18/17 20:51 ABG O2 Saturation 98.3 % (95-98) H 03/18/17 20:51 ABG O2 Content 16.0 ML/dL (15-23) 03/18/17 20:51 ABG Base Excess -0.6 mmol/L (-2.0-3.0) 03/18/17 20:51 ABG Hemoglobin 11.9 g/dL (11.7-17.4) 03/18/17 20:51 ABG Carboxyhemoglobin 1.6 % (0.5-1.5) H 03/18/17 20:51 POC ABG HHb (Measured) 1.6 % (0.0-5.0) 03/18/17 20:51 ABG Methemoglobin 1.7 % (0.0-3.0) 03/18/17 20:51 ABG O2 Capacity 16.3 mL/dL (16-24) 03/18/17 20:51 Serge Test Yes 03/18/17 20:51 A-a O2 Difference 24.0 mm/Hg 03/18/17 20:51 Hgb O2 Saturation 95.2 % (95.0-98.0) 03/18/17 20:51 FiO2 21.0 % 03/18/17 20:51 Sodium 130 mmol/l (132-148) L 03/19/17 04:20 Potassium 3.7 MMOL/L (3.6-5.0) 03/19/17 04:20 Chloride 100 mmol/L (98-107) 03/19/17 04:20 Carbon Dioxide 23 mmol/L (22-30) 03/19/17 04:20 Anion Gap 11 (10-20) 03/19/17 04:20 BUN 32 mg/dl (9-20) H 03/19/17 04:20 Creatinine 1.5 mg/dL (0.8-1.5) 03/19/17 04:20 Est GFR ( Amer) 59 03/19/17 04:20 Est GFR (Non-Af Amer) 48 03/19/17 04:20 POC Glucose (mg/dL) 380 mg/dL (65-110) H 03/19/17 12:09 Random Glucose 417 mg/dL (75-110) H* D 03/19/17 04:20 Hemoglobin A1c 13.8 % (4.2-6.5) H 03/19/17 04:20 Calcium 8.7 mg/dL (8.4-10.2) 03/19/17 04:20 Phosphorus 4.1 mg/dl (2.5-4.5) 03/19/17 00:30 Magnesium 2.3 MG/DL (1.6-2.3) 03/19/17 00:30 Total Bilirubin 0.5 mg/dl (0.2-1.3) 03/19/17 04:20 AST 24 U/L (17-59) 03/19/17 04:20 ALT 27 U/L (21-72) 03/19/17 04:20 Alkaline Phosphatase 71 U/L (38-126) 03/19/17 04:20 Total Protein 6.9 G/DL (6.3-8.2) 03/19/17 04:20 Albumin 3.7 g/dL (3.5-5.0) 03/19/17 04:20 Globulin 3.2 gm/dL (2.2-3.9) 03/19/17 04:20 Albumin/Globulin Ratio 1.2 (1.0-2.1) 03/19/17 04:20 Triglycerides 503 mg/DL (0-149) H D 03/19/17 04:20 Cholesterol 174 mg/dL (0-199) 03/19/17 04:20 LDL Cholesterol Direct < 30 mg/dL (0-129) 03/19/17 04:20 HDL Cholesterol 25 MG/DL (30-70) L 03/19/17 04:20 Thyroxine (T4) 8.02 ug/dl (5.5-11.0) 03/19/17 04:20 TSH 3rd Generation 1.38 mIU/ML (0.46-4.68) 03/19/17 04:20 Urine Opiates Screen Negative (NEGATIVE) 03/19/17 11:14 Urine Methadone Screen Negative (NEGATIVE) 03/19/17 11:14 Ur Barbiturates Screen Negative (NEGATIVE) 03/19/17 11:14 Ur Phencyclidine Scrn Negative (NEGATIVE) 03/19/17 11:14 Ur Amphetamines Screen Negative (NEGATIVE) 03/19/17 11:14 U Benzodiazepines Scrn Negative (NEGATIVE) 03/19/17 11:14 U Oth Cocaine Metabols Negative (NEGATIVE) 03/19/17 11:14 U Cannabinoids Screen Negative (NEGATIVE) 03/19/17 11:14 - Hospital Course Hospital Course: 57 yr old M admitted for DKA, which has now resolved s/p treatment with IV fluids and insulin drip. Patients blood glucose remained uncontrolled, was placed on scheduled insulin dose, and endocrinology on board recommended adjusted insulin doses. Patient was monitored and treated overnight in ICU. Patient has PMHx of HIV, DM Type II, HTN, HLD, TIA, CAD/LA x 1 2015, CKD stage 3B. Today patient decided to sign out against medical advice despite extensive discussion with the medical team and leak detector Dr. Grijalva about the risks of severely uncontrolled blood glucose. Patient refused further treatment and proceeded to sign out assuring he would follow Dr. Grijalva's recommendation and followup as outpatient. Hypoglycemia precautions were reviewed, Rx was given for insulin per Dr. Grijalva's orders. Patient will follow up outpatient with his PMD Dr. Hinojosa within 1 week. - Date & Time of H&P Date of H&P: 03/18/17 Time of H&P: 16:44 Discharge Exam - Head Exam Head Exam: ATRAUMATIC, NORMOCEPHALIC - Eye Exam Eye Exam: EOMI, PERRL - ENT Exam ENT Exam: Mucous Membranes Moist - Neck Exam Neck exam: Full Rom - Respiratory Exam Respiratory Exam: Clear to PA & Lateral, NORMAL BREATHING PATTERN - Cardiovascular Exam Cardiovascular Exam: REGULAR RHYTHM, +S1, +S2 - GI/Abdominal Exam GI & Abdominal Exam: Normal Bowel Sounds, Soft (obese). absent: Distended, Tenderness - Extremities Exam Extremities exam: full ROM (right hallux amputated, no pedal edema, no calf tenderness) - Back Exam Back exam: absent: CVA tenderness (L), CVA tenderness (R) - Neurological Exam Neurological exam: Alert, CN II-XII Intact, Oriented x3 - Psychiatric Exam Psychiatric exam: Normal Affect, Normal Mood - Skin Skin Exam: Dry, Intact, Warm Discharge Plan - Follow Up Plan Condition: CRITICAL Disposition: AGAINST MEDICAL ADVICE Additional Instructions: -Follow up outpatient with PMD Dr. Hinojosa within 1 week. -Take insulin as prescribed: Humalog Kwikpen 8 units SC TID with meals , Levemir Flextouch pens 34 units SCHS , BD Pen needles tin -Hypoglycemia precautions reviewed Referrals: Noel Hinojosa MD [Family Provider] - Clinical Quality Measures - Date & Time of Discharge Summary Date of Discharge Summary: 03/19/17 Time of Discharge Summary: 15:35
[2017-03-19] MEDS ORDERED: Insulin Detemir 100 Units/ml Inj SC SCH (22:00)
== END 2017-03-19 12:50 | disposition left against medical advice (07) | DRG 566 ==
LOC: H.ER 13:04 → H.ERHOLD 15:48 → H.ICU/CCU 18:31
PROVIDERS: ADMIT Family Medicine Geriatric Medicine; ATTEND Family Medicine Geriatric Medicine
PROC: 3E0234Z Introduction of Serum, Toxoid and Vaccine into Muscle, Percutaneous Approach (ICD-10-PCS; principal; 2017-03-19)
DX: E13.10 Other specified diabetes mellitus with ketoacidosis without coma (principal); N17.9 Acute kidney failure, unspecified; E87.0 Hyperosmolality and hypernatremia; N18.3 Chronic kidney disease, stage 3 (moderate); E86.0 Dehydration; E86.1 Hypovolemia; I12.9 Hypertensive chronic kidney disease with stage 1 through stage 4 chronic kidney disease, or unspecified chronic kidney disease; L29.8 Other pruritus; Z21 Asymptomatic human immunodeficiency virus [HIV] infection status; I25.2 Old myocardial infarction; E78.00 Pure hypercholesterolemia, unspecified; E78.5 Hyperlipidemia, unspecified; I25.10 Atherosclerotic heart disease of native coronary artery without angina pectoris; Z23 Encounter for immunization; Z79.02 Long term (current) use of antithrombotics/antiplatelets; Z79.82 Long term (current) use of aspirin; Z86.73 Personal history of transient ischemic attack (TIA), and cerebral infarction without residual deficits; Z87.891 Personal history of nicotine dependence; Z91.19 Patient's noncompliance with other medical treatment and regimen; Z95.1 Presence of aortocoronary bypass graft; Z95.5 Presence of coronary angioplasty implant and graft; Z98.41 Cataract extraction status, right eye

== ENCOUNTER 2017-03-25 14:01 | Emergency (ER) | payer MEDICAID ==
[2017-03-25 14:04] VITALS: TEMP 98.5; O2SAT 98
[2017-03-25] MEDS ORDERED: Sodium Chloride 0.9% 1,000 ML IV STA (14:15)
[2017-03-25 14:35] LABS: ABG ALLEN TEST YES; ARTERIAL BLOOD GAS HCO3 22.8 mmol/L (21-28); ARTERIAL BLOOD GAS O2 SAT 99.4 % (95-98); ARTERIAL BLOOD GAS PCO2 36 mm/Hg (35-45); ARTERIAL BLOOD GAS PH 7.39 (7.35-7.45); ARTERIAL BLOOD GAS PO2 78 mm/Hg (80-100); ARTERIAL BLOOD GAS TCO2 22.9 mmol/L (22-28)
--- NOTE | 2017-03-25 14:35 | ED PDOC ---
ATTENTION PHYSICIANS Hyperglycemia/Hypoglycemia History Per: Patient History/Exam Limitations: no limitations Onset/Duration Of Symptoms: Mins Current Symptoms Are (Timing): Still Present Severity: Moderate Current Diabetic Medications: Insulin Associated Infectious Symptoms: denies: Cough, Sore Throat, Dysuria, Urinary Urgency, Urinary Frequency, Nausea, Vomiting, Diarrhea : The patient does not have any of the infectious symptoms listed except for those marked. Treatment Prior To Provider Evaluation: Accucheck Additional Complaint(s): CC: hyperglycemia HPI: 57 y/o man w/ PMH of HIV, HTN, DM2, HLD, TIA, CAD s/p stent 2016, CKD 3b presents to ED for hyperglycemia. Patient was sent from clinic upon accucheck of >500. The patient denies headaches, dizziness, diaphoresis, blurred vision, chest pain, SOB, nausea, vomiting, diarrhea, dysuria, and fever. The patient has history of non-compliance w/ DM2 management. Recently left AMA while admitted for DKA 1 week ago. PMD: Dr. Rodrigues PMH: HIV, HTN, DM2, HLD, TIA, CAD s/p stent 2016, CKD 3b PSH: stent 2016 SOC: denies smoking, alcohol, and drugs ROS: denies 12 points assessed unless otherwise reported in HPI <Noel Mata - Last Filed: 03/25/17 17:28> <Alyson To - Last Filed: 03/26/17 15:44> Time Seen by Provider: 03/25/17 14:07 Chief Complaint (Nursing): High Blood Sugar Supervising Attending Note - Supervising Attending Note The Documented history was done by the: Physician Manager Database The documented physical exam was done by the: Physician Manager Database, Attending Physician - Attestation: I have personally seen and examined this patient.: Yes I have fully participated in the care of the patient.: Yes I have reviewed all pertinent clinical information, including history, physical exam and plan: Yes - Notes: Notes:: Hyperglycemia, due to noncompliance with medicines, with no acidosis or ketosis. Improved with IVF and insulin. <Alyson To - Last Filed: 03/26/17 15:44> Past Medical History Vital Signs: Last Vital Signs Temp 98.5 F 03/25/17 14:02 Pulse 77 03/25/17 14:02 Resp 18 03/25/17 14:02 BP 96/67 L 03/25/17 14:02 Pulse Ox 98 03/25/17 14:02 - Medical History PMH: Bronchitis, CAD, Diabetes, HIV, HTN, Hypercholesterolemia, Hyperlipidemia, TIA Denies: Chronic Kidney Disease - Surgical History Surgical History: CABG (x 1 stent), Coronary Stent - Family History Family History: States: Unknown Family Hx - Immunization History Hx Tetanus Toxoid Vaccination: No Hx Influenza Vaccination: Yes Hx Pneumococcal Vaccination: No <Noel Mata - Last Filed: 03/25/17 17:28> Vital Signs: Last Vital Signs Temp 98.5 F 03/25/17 14:02 Pulse 70 03/25/17 17:25 Resp 16 03/25/17 17:25 BP 116/65 03/25/17 17:25 Pulse Ox 98 03/25/17 17:28 <Alyson To - Last Filed: 03/26/17 15:44> - Home Medications Home Medications: Ambulatory Orders Medication Instructions Recorded Alogliptin Benzoate [Alogliptin] 25 mg PO DAILY 12/27/16 Atorvastatin Calcium 10 mg PO DAILY 12/27/16 Chlorthalidone [Hygroton] 25 mg PO DAILY 12/27/16 Darunavir Ethanolate [Prezista] 600 mg PO BID 12/27/16 Dolutegravir Sodium [Tivicay] 50 mg PO DAILY 12/27/16 Famotidine 20 mg PO BID 12/27/16 Lamivudine [Epivir] 150 mg PO DAILY 12/27/16 Lisinopril [Zestril] 40 mg PO DAILY 12/27/16 Loratadine [Claritin] 10 mg PO DAILY 12/27/16 NIFEdipine ER [Nifedipine ER] 60 mg PO DAILY 12/27/16 Ritonavir [Norvir] 100 mg PO BID 12/27/16 Sulfamethoxazole/Trimethoprim 1 tab PO DAILY 12/27/16 [Bactrim DS 800 mg-160 mg] Tamsulosin [Flomax] 0.4 mg PO DAILY 12/27/16 Vitamin E 1,000 unit PO DAILY 12/27/16 Aspirin [Ecotrin] 81 mg PO DAILY 03/18/17 Cholecalciferol [Vitamin D 1000 IU] 1,000 unit PO DAILY 03/18/17 Clopidogrel [Plavix] 75 mg PO DAILY 03/18/17 Ibuprofen [Motrin] 600 mg PO Q8 PRN 03/18/17 Oxybutynin XL [Ditropan XL] 5 mg PO HS 03/18/17 - Allergies Allergies/Adverse Reactions: Allergies Allergy/AdvReac Type Severity Reaction Status Date / Time No Known Allergies Allergy Verified 01/02/17 15:31 Review of Systems ROS Statement: Except As Marked, All Systems Reviewed And Found Negative Constitutional: Negative for: Fever, Chills Eyes: Negative for: Vision Change Cardiovascular: Negative for: Chest Pain, Palpitations, Edema, Light Headedness Respiratory: Negative for: Cough, Shortness of Breath, SOB with Exertion, Pleuritic Pain, Wheezing Gastrointestinal: Negative for: Nausea, Vomiting, Abdominal Pain, Diarrhea Genitourinary Male: Negative for: Dysuria Skin: Negative for: Rash Neurological: Negative for: Confusion, Altered Mental Status, Headache, Dizziness <Noel Mata - Last Filed: 03/25/17 17:28> Physical Exam - Reviewed Nursing Documentation Reviewed: Yes Vital Signs Reviewed: Yes - Physical Exam Appears: Positive for: No Acute Distress Head Exam: Positive for: ATRAUMATIC, NORMOCEPHALIC Skin: Positive for: Warm, Dry, Pallor Eye Exam: Positive for: Normal appearance, EOMI, PERRL Neck: Positive for: Painless ROM, Supple Cardiovascular/Chest: Positive for: Regular Rate, Rhythm, Chest Non Tender. Negative for: Edema, Bradycardia, Tachycardia Respiratory: Positive for: Normal Breath Sounds. Negative for: Decreased Breath Sounds, Accessory Muscle Use, Wheezing, Respiratory Distress Pulses-Carotid (L): 2+ Pulses-Carotid (R): 2+ Pulses-Radial (L): 2+ Pulses-Radial (R): 2+ Gastrointestinal/Abdominal: Positive for: Normal Exam, Bowel Sounds, Soft. Negative for: Tenderness Neurologic/Psych: Positive for: Alert, Oriented <Noel Mata - Last Filed: 03/25/17 17:28> - Laboratory Results Result Diagrams: 03/25/17 14:49 03/25/17 14:49 - ECG O2 Sat by Pulse Oximetry: 98 <Noel Mata - Last Filed: 03/25/17 17:28> - Laboratory Results Result Diagrams: 03/25/17 14:49 03/25/17 14:49 <Alyson To - Last Filed: 03/26/17 15:44> Medical Decision Making Medical Decision Makin57 y/o man w/ PMH of HIV, HTN, DM2, HLD, TIA, CAD s/p stent 2016, CKD 3b presents to ED for hyperglycemia. CBC w/ diff: WNL, no elevated WBC, no anemia CMP: corrected Na 129, K 4.7, Cr 2.3, glucose 608 Osmolality: 311 Magnesium: 2.1 Phosphorous: 4.6 ABG: pH 7.39, CO2 36, lactate 0.8, glucose 608 PT: 12.1 INR1.1 aPTT: 29.4 Urine dip: >500 glucose, neg ketone, blood, nitrates, leukocyte esterase EKG: NSR, no ST-elevation/depression, no T wave depression/peaking, no prolonged QT interval, no prolonged segments IV NS bolus regular insulin 10 units SC stat regular insulin 10 units IVP stat re-evaluated 17:30 feels better repeat fingerstick 361 given regular insulin 6 units SC Dsipo: discharge home, counseled to follow up w/ PMD and adherence to medical management <Noel Mata - Last Filed: 03/25/17 17:28> Disposition - Patient ED Disposition Is Patient to be Admitted: No Discussed With DrJaqui: Alyson To Counseled Patient/Family Regarding: Studies Performed, Diagnosis, Need For Followup - Disposition Disposition: Routine/Home Disposition Time: 17:25 - POA Present On Arrival: None <Noel Mata - Last Filed: 03/25/17 17:28> <Alyson To - Last Filed: 03/26/17 15:44> - Clinical Impression Clinical Impression: Acute hyperglycemia - Disposition Referrals: [facility] [Outside] Condition: IMPROVED Instructions: Hyperosmolar Hyperglycemic State (ED), Diabetic Hyperglycemia (ED ) Print Language: UPPER SORBIAN
[2017-03-25] MEDS ORDERED: Insulin Regular 100 units/ml IVP STA (14:43)
[2017-03-25] MEDS ORDERED: Insulin Regular 100 units/ml SC STA ×2 (14:43→17:10)
[2017-03-25 15:02] LABS: ALBUMIN 4.4 g/dL (3.5-5.0); BASO % 0.8 % (0.0-2.0); EOS # 0.1 K/uL (0.0-0.7); EOS % 2.2 % (0.0-4.0); HEMOGLOBIN 12.1 g/dL (12.0-18.0); LYMPH # 1.7 K/uL (1.0-4.3); LYMPH % 35.4 % (20.0-40.0); MEAN CELL VOLUME 92.6 fl (80.0-94.0); MEAN CORPUSCULAR HGB CONC 35.6 g/dL (33.0-37.0); MEAN PLATELET VOLUME 8.1 fl (7.2-11.7); MONO # 0.3 K/uL (0.0-0.8); MONO % 6.8 % (0.0-10.0); NEUT # 2.6 K/uL (1.8-7.0); NEUT % 54.8 % (50.0-75.0); NRBC % 0.1 % (0.0-0.0); RBC 3.67 Mil/uL (4.40-5.90); RED CELL DISTRIBUTION WIDTH 14.2 % (11.5-14.5); WHITE BLOOD COUNT 4.8 K/uL (4.8-10.8)
[2017-03-25 15:04] LABS: ALB/GLOB RATIO 1.1 (1.0-2.1)
[2017-03-25 15:05] LABS: CALCIUM 9.6 mg/dL (8.4-10.2); MAGNESIUM 2.1 MG/DL (1.6-2.3)
[2017-03-25 15:14] LABS: INR 1.1 (0.9-1.2); PARTIAL THROMBOPLASTIN TIME 29.4 Seconds (25.6-37.1); PROTHROMBIN TIME 12.1 Seconds (9.8-13.1)
[2017-03-25] MEDS ORDERED: Insulin Regular 100 units/ml ONE ×2 (15:26→17:24)
[2017-03-25 17:26] VITALS: BP 116/65; PULSE 70; RESP 16
--- NOTE | 2017-03-26 08:22 | CARD ---
APPROVED REPORT EKG Measurement Heart [id number] <Conclusion> Normal sinus rhythm T wave abnormality, consider lateral ischemia Abnormal ECG
== END 2017-03-25 17:30 | disposition home or self-care (01) ==
LOC: H.ER 14:01
DX: E11.65 Type 2 diabetes mellitus with hyperglycemia (principal); I25.10 Atherosclerotic heart disease of native coronary artery without angina pectoris; N18.3 Chronic kidney disease, stage 3 (moderate); Z79.82 Long term (current) use of aspirin; Z86.73 Personal history of transient ischemic attack (TIA), and cerebral infarction without residual deficits; Z91.19 Patient's noncompliance with other medical treatment and regimen; Z95.5 Presence of coronary angioplasty implant and graft

== ENCOUNTER 2017-05-12 15:06 | Emergency (ER) | payer MEDICAID ==
[2017-05-12 15:11] VITALS: BP 114/79; PULSE 79; RESP 19; TEMP 98.2; O2SAT 99
--- NOTE | 2017-05-12 15:52 | ED PDOC ---
HPI: Back Time Seen by Provider: 05/12/17 15:20 Chief Complaint (Nursing): Abnormal Skin Integrity History Per: Patient (small bump on the left upper back - present for 2-3 days with increasing discomfort. no fever or chills.) Onset/Duration Of Symptoms: Days, Gradual Severity: Mild Previous Symptoms: Back Pain Associated Symptoms: None Additional History Per: Patient Past Medical History Reviewed: Historical Data, Nursing Documentation, Vital Signs Vital Signs: Last Vital Signs Temp 98.2 F 05/12/17 15:08 Pulse 79 05/12/17 15:08 Resp 19 05/12/17 15:08 BP 114/79 05/12/17 15:08 Pulse Ox 99 05/12/17 15:08 - Medical History PMH: Bronchitis, CAD, Diabetes, HIV, HTN, Hypercholesterolemia, Hyperlipidemia, TIA Denies: Chronic Kidney Disease - Surgical History Surgical History: CABG (x 1 stent), Coronary Stent - Family History Family History: States: Unknown Family Hx - Immunization History Hx Tetanus Toxoid Vaccination: No Hx Influenza Vaccination: Yes Hx Pneumococcal Vaccination: No - Home Medications Home Medications: Ambulatory Orders Medication Instructions Recorded Alogliptin Benzoate [Alogliptin] 25 mg PO DAILY 12/27/16 Atorvastatin Calcium 10 mg PO DAILY 12/27/16 Chlorthalidone [Hygroton] 25 mg PO DAILY 12/27/16 Darunavir Ethanolate [Prezista] 600 mg PO BID 12/27/16 Dolutegravir Sodium [Tivicay] 50 mg PO DAILY 12/27/16 Famotidine 20 mg PO BID 12/27/16 Lamivudine [Epivir] 150 mg PO DAILY 12/27/16 Lisinopril [Zestril] 40 mg PO DAILY 12/27/16 Loratadine [Claritin] 10 mg PO DAILY 12/27/16 NIFEdipine ER [Nifedipine ER] 60 mg PO DAILY 12/27/16 Ritonavir [Norvir] 100 mg PO BID 12/27/16 Sulfamethoxazole/Trimethoprim 1 tab PO DAILY 12/27/16 [Bactrim DS 800 mg-160 mg] Tamsulosin [Flomax] 0.4 mg PO DAILY 12/27/16 Vitamin E 1,000 unit PO DAILY 12/27/16 Aspirin [Ecotrin] 81 mg PO DAILY 03/18/17 Cholecalciferol [Vitamin D 1000 IU] 1,000 unit PO DAILY 03/18/17 Clopidogrel [Plavix] 75 mg PO DAILY 03/18/17 Ibuprofen [Motrin] 600 mg PO Q8 PRN 03/18/17 Oxybutynin XL [Ditropan XL] 5 mg PO HS 03/18/17 Cephalexin [cephalexin] 500 mg PO BID #14 cap 05/12/17 - Allergies Allergies/Adverse Reactions: Allergies Allergy/AdvReac Type Severity Reaction Status Date / Time No Known Allergies Allergy Verified 01/02/17 15:31 Review of Systems ROS Statement: Except As Marked, All Systems Reviewed And Found Negative Constitutional: Negative for: Fever, Chills Physical Exam - Physical Exam Appears: Positive for: Well, Non-toxic Skin: Positive for: Normal Color Eye Exam: Positive for: Normal appearance ENT: Positive for: Normal ENT Inspection Neck: Positive for: Normal Cardiovascular/Chest: Positive for: Regular Rate, Rhythm Respiratory: Positive for: Normal Breath Sounds Back: Positive for: Normal Inspection, Other (0.5x0.5 cm nodule with fluctuance) - ECG O2 Sat by Pulse Oximetry: 99 Procedures - Incision and Drainage Site: left upper back Blade Size: 11 I & D Procedure: betadine prep Progress: expresses semi solid whitish material - patient tolerated procedure well. Disposition - Clinical Impression Clinical Impression: Abscess - Patient ED Disposition Is Patient to be Admitted: No Doctor Will See Patient In The: Office Counseled Patient/Family Regarding: Diagnosis, Need For Followup, Rx Given - Disposition Referrals: Noel Rodrigues MD [Family Provider] - Disposition: Routine/Home Disposition Time: 15:35 Condition: IMPROVED Prescriptions: Cephalexin [cephalexin] 500 mg PO BID #14 cap Instructions: Abscess (ED) Forms: [employer] (Vietnamese) - POA Present On Arrival: None
== END 2017-05-12 16:00 | disposition home or self-care (01) ==
LOC: H.ER 15:06
DX: L02.212 Cutaneous abscess of back [any part, except buttock and flank] (principal); E11.9 Type 2 diabetes mellitus without complications; I10 Essential (primary) hypertension; Z95.5 Presence of coronary angioplasty implant and graft; I25.10 Atherosclerotic heart disease of native coronary artery without angina pectoris; Z86.73 Personal history of transient ischemic attack (TIA), and cerebral infarction without residual deficits; E78.5 Hyperlipidemia, unspecified